=== PATIENT | male | born 1955 | race Two or more races ===

== ENCOUNTER 2018-11-20 07:06 | Inpatient (IN) | payer MEDICARE, MEDICAID ==
[~2018-11-20] VITALS: Ht 167.6 cm; Wt 57.2 kg
[2018-11-20 10:15] VITALS: BP 119/72
--- NOTE | 2018-11-20 10:30 | NUR ---
NURSE NOTES: Patient transferred from [facility], and received report from [place] nurse Jelly/RN and Bonilla/ EMT. Patient alert, IV on right antecubital, patent, no bleeding or infiltration. Fistula on right lower arm thrilling. Heart monitor placed. No acute distress/SOB noted. Vitals are stable. at bed side. Bed in low position and locked, Call light within reach.
[2018-11-20 12:00] VITALS: BP 109/71
[2018-11-20] MEDS ORDERED: Zolpidem 5mg tab ORAL PRN (12:15)
[2018-11-20] MEDS ORDERED: Morphine Sulfate 2mg/ml Inj(IV/IM USE ONLY) IVP PRN ×2 (12:15→13:00)
[2018-11-20] MEDS ORDERED: LORazepam Inj 2mg/ml 1ml IV PRN (12:15)
[2018-11-20] MEDS ORDERED: Miralax 17gm pkt ORAL PRN (12:15)
[2018-11-20] MEDS: Midodrine 10mg tab ORAL SCH ×2 (13:43→17:05)
[2018-11-20] MEDS ORDERED: Acyclovir 1,000 MG in D5W 275 ML IV SCH (14:00)
[2018-11-20] MEDS ORDERED: valACYclovir HCL 500mg tab ORAL SCH (14:00)
--- NOTE | 2018-11-20 14:47 | Consultation ---
Consult Note Consult Note asked to eval for dialysis management Assessment/Plan # [id number] Randy Jeter MD Nov 20, 2018 14:47
[2018-11-20 15:42] LABS: BASOPHILS % (AUTO) 0.8 % (0.0-2.0); EOSINOPHILS % (AUTO) 0.1 % (0.0-3.0); HEMATOCRIT 31.2 % (42.0-52.0); HEMOGLOBIN 10.3 G/DL (14.2-18.0); LYMPHOCYTES % (AUTO) 12.5 % (20.0-45.0); MEAN CORPUSCULAR VOLUME 96 FL (80-99); MONOCYTES % (AUTO) 5.9 % (1.0-10.0); NEUTROPHILS % (AUTO) 80.7 % (45.0-75.0); PLATELET COUNT 210 K/UL (150-450); RED BLOOD COUNT 3.25 M/UL (4.70-6.10); RED CELL DISTRIBUTION WIDTH 15.2 % (11.6-14.8); WHITE BLOOD COUNT 10.8 K/UL (4.8-10.8)
[2018-11-20 15:46] LABS: ANION GAP 19 mmol/L (5-15); BLOOD UREA NITROGEN 90 mg/dL (7-18); CALCIUM 8.3 MG/DL (8.5-10.1); CARBON DIOXIDE 20 MMOL/L (21-32); CHLORIDE 92 MMOL/L (98-107); CREATININE 6.1 MG/DL (0.55-1.30); POTASSIUM 3.7 MMOL/L (3.5-5.1); SODIUM 131 MMOL/L (136-145)
[2018-11-20 15:49] LABS: PHOSPHORUS 5.7 MG/DL (2.5-4.9)
[2018-11-20 16:00] VITALS: BP 114/68
[2018-11-20] MEDS: Sucralfate 1gm tab ORAL SCH (17:05)
[2018-11-20] MEDS: Docusate 100mg cap ORAL SCH (17:06)
--- NOTE | 2018-11-20 18:07 | History & Physical ---
History and Physical History & Physicial Dictated for Int Med-Dr Bond no. [id number]. Osei Hernandez MD Nov 20, 2018 18:07
--- NOTE | 2018-11-20 19:10 | NUR ---
HAND-OFF: Report given to Vianca/RN, Patient is awake and alert, Family at bedside. No acute distress/SOB noted. Endorsed plan of care.
--- NOTE | 2018-11-20 19:10 | NUR ---
NURSE NOTES: OBTAINED REPORT FROM KELLIE AUGUSTE. PT RESTING IN BED FREE FROM APPARENT DISTRESS.
--- NOTE | 2018-11-20 19:45 | Consultation ---
DATE OF CONSULTATION: 11/20/2018 RENAL CONSULTATION CONSULTING PHYSICIAN: Randy Jeter M.D. HISTORY OF PRESENT ILLNESS: I was asked to evaluate the patient for dialysis management. The patient is a 63-year-old male, who was transferred here from [facility]. The patient is a poor historian. All the information was gotten through a physician asst. Apparently, he is having a long history of diabetes and high blood pressure and as a result of that, he developed kidney failure and he was started on dialysis 2 years ago. He is being dialyzed through the left forearm fistula. The patient seen his primary physician and was diagnosed to have shingles. The rash is over the right upper back and was given Valtrex. The patient apparently developed a reaction and started hallucinating and as a result of that, was taken to emergency room. He was later transferred here to [facility]. Current medications that the patient has in the box that was taking include acyclovir, iron, ibuprofen, midodrine, Protonix, prednisone, and Carafate. PHYSICAL EXAMINATION: GENERAL: Right now, the patient is not in any distress. VITAL SIGNS: Temperature 97.4, pulse rate 90, respiratory rate 20, and blood pressure 109/71. The patient have a fistula over the right arm. HEART: Appears to be irregular with rare irregular beats. LUNGS: Clear. ABDOMEN: Soft. EXTREMITIES: Lower extremities, trace to 1+ edema. Evidence of right hip surgery present and there are left over skin rashes over the right upper back of recent shingles infection. IMPRESSION: 1. ESRD. 2. Encephalopathy. 3. History of recent shingles. 4. History of diabetes mellitus. 5. History of hypertension. 6. History of right hip fracture. SURGERY PLAN: Check the labs, hemodialysis tomorrow, if needed earlier based on the serum potassium. We will be doing it earlier and also continue the rest of the medication, which include blood pressure and blood sugar check per the PMD according to how the patient's condition evolves, we make the proper changes in our future management. Randy Jeter M.D. DR: BIRD JOB#: [id number] CC:
[2018-11-20 20:00] VITALS: BP 113/75
--- NOTE | 2018-11-20 21:00 | History and Physical Report ---
DATE OF ADMISSION: 11/20/2018 CHIEF COMPLAINT: The patient is a 63-year-old male, who presents with chief complaint of right-sided chest pain. HISTORY OF PRESENT ILLNESS: The patient was diagnosed with shingles approximately one week ago. The patient has completed a course of Valtrex and prednisone. The patient states the rash had disappeared. The patient presented to [facility] Emergency Room complaining of dizziness. The patient states dizziness began approximately 5 hours prior to admission. The patient also was complaining of right-sided chest pain. The patient was transferred to [facility] for insurance purposes. The patient is admitted for right-sided chest pain and dizziness. REVIEW OF SYSTEMS: CONSTITUTIONAL: The patient denies weight loss or weight gain. The patient denies fevers or chills. HEENT: The patient denies ear or throat pain. The patient denies headache. CARDIOVASCULAR: The patient denies palpitations or chest pain. CHEST: The patient complains of cough productive of yellowish sputum. The patient denies wheezes. ABDOMEN: The patient denies nausea, vomiting, diarrhea, or constipation. GENITOURINARY: The patient denies dysuria or increased frequency of urination. NEUROMUSCULAR: The patient denies seizures or generalized weakness. PAST MEDICAL HISTORY: Significant for: 1. Diabetes type 2. 2. Hypertension. 3. End-stage renal disease, on hemodialysis every Thursday, , and Thursday. 4. Congestive heart failure. 5. Cirrhosis of liver. PAST SURGICAL HISTORY: The patient denies. CURRENT MEDICATIONS: 1. Valtrex 1 g p.o. 3 times daily. 2. Prednisone 5 mg p.o. 3 times daily. 3. Carafate 1 tablet p.o. daily before meals. 4. Protonix 40 mg p.o. daily. 5. Midodrine 10 mg one tablet p.o. 3 times daily. 6. Iron sulfate 325 mg p.o. twice daily. 7. Ibuprofen 600 mg p.o. q.6 hours p.r.n. ALLERGIES: No known drug allergies. SOCIAL HISTORY: The patient is . The patient's is at the bedside. The patient denies tobacco use, having quit several years previously. The patient denies alcohol use. PHYSICAL EXAMINATION: VITAL SIGNS: Temperature 97.1, respirations 18, pulse 92, blood pressure 142/82. GENERAL: Well-developed, well-nourished male, in no apparent distress. HEENT: Eyes, pupils equal and responsive to light and accommodation. Extraocular movements are intact. NECK: Supple without lymphadenopathy. CHEST: Lungs are clear to auscultation bilaterally without wheezes or rales. CARDIOVASCULAR: Regular rhythm and rate. S1 and S2 are normal without murmurs, rubs, or gallops. ABDOMEN: Soft, nontender, and nondistended. Positive bowel sounds. No evidence of hepatosplenomegaly. Currently, no rebound or guarding noted. EXTREMITIES: Negative for clubbing, cyanosis, or edema. RECTAL: Refused. GENITAL: Refused. NEUROLOGIC: Cranial nerves II through XII are grossly intact without focal deficits. Motor strength is 5/5 bilaterally intact. Deep tendon reflexes are 2+, plantar. LABORATORY AND DIAGNOSTIC DATA: WBC 7.1, hemoglobin 11.2, hematocrit 33.1, platelets 225,000. Sodium 133, potassium 3.9, chloride 94, CO2 21, BUN 80, creatinine 5.66, glucose 290. CT of the head without contrast was reported as no acute disease. ASSESSMENT: This is a 63-year-old male with: 1. Vertigo. 2. Right chest pain. 3. Herpes zoster. 4. End-stage renal disease. 5. Diabetes type 2. 6. Hypertension. 7. History of congestive heart failure. 8. Cirrhosis of liver. TREATMENT: 1. Vertigo. This may be a multifactorial. The patient missed dialysis today. Vertigo may be secondary to missed dialysis versus acute cerebrovascular accident versus acute myocardial infarction. Serial troponin levels will be performed. MRI of the brain is pending. Carotid duplex Dopplers are pending. 2. Right chest pain. This is probably secondary to herpes zoster. 3. Herpes zoster. The patient has completed a course of Valtrex and prednisone. 4. End-stage renal disease. A Nephrology consultation has been obtained with Dr. Jeter. 5. Diabetes type 2. Regular insulin sliding scale has been instituted. 6. Hypertension. Continue midodrine as above. 7. Congestive heart failure. 8. Cirrhosis of the liver. Osei Hernandez M.D. DR: Fco JOB#: [id number] CC:
[2018-11-21] VITALS (9 sets, daily range): BP systolic 92–114; BP diastolic 42–74
[2018-11-21] MEDS: Sucralfate 1gm tab ORAL SCH ×3 (06:04→16:26)
--- NOTE | 2018-11-21 07:00 | NUR ---
NURSE NOTES: Received report from Vianca/RN, Patient is asleep, no acute distress/SOB noted at this time. Family member at bedside. IV on right antecubital 20 gauge. patent, no bleeding or infiltration noted. Bed in low position and locked, Call light within reach. Will continue plan of care.
--- NOTE | 2018-11-21 07:08 | NUR ---
HAND-OFF: REPORT GIVEN TO KELLIE AUGUSTE. PT RESTING IN BED FREE FROM APPARENT DISTRESS. FALL RISK PRECAUTIONS IN PLACE AND CALL LIGHT WITHIN REACH AT ALL TIMES.
[2018-11-21 07:31] LABS: BASOPHILS % (AUTO) 0.3 % (0.0-2.0); HEMATOCRIT 33.9 % (42.0-52.0); LYMPHOCYTES % (AUTO) 11.7 % (20.0-45.0); MEAN CORPUSCULAR VOLUME 98 FL (80-99); PLATELET COUNT 226 K/UL (150-450); RED BLOOD COUNT 3.48 M/UL (4.70-6.10); RED CELL DISTRIBUTION WIDTH 15.9 % (11.6-14.8); WHITE BLOOD COUNT 10.1 K/UL (4.8-10.8)
[2018-11-21 07:38] LABS: CREATINE KINASE 33 U/L (26-308); GAMMA GLUTAMYL TRANSPEPTIDASE 1040 U/L (5-85); PHOSPHORUS 6.7 MG/DL (2.5-4.9)
[2018-11-21 07:54] LABS: ALANINE AMINOTRANSFERASE 46 U/L (12-78); ALBUMIN 2.4 G/DL (3.4-5.0); ALBUMIN/GLOBULIN RATIO 0.5 (1.0-2.7); ALKALINE PHOSPHATASE 691 U/L (46-116); ANION GAP 22 mmol/L (5-15); ASPARTATE AMINO TRANSFERASE 67 U/L (15-37); BILIRUBIN,TOTAL 5.4 MG/DL (0.2-1.0); BLOOD UREA NITROGEN 94 mg/dL (7-18); CALCIUM 8.6 MG/DL (8.5-10.1); CARBON DIOXIDE 19 MMOL/L (21-32); CHLORIDE 92 MMOL/L (98-107); CHOLESTEROL 392 MG/DL (< 200); CREATININE 6.8 MG/DL (0.55-1.30); FERRITIN 733 NG/ML (8-388); HDL CHOLESTEROL 16 MG/DL (40-60); POTASSIUM 4.2 MMOL/L (3.5-5.1); SODIUM 133 MMOL/L (136-145); TRIGLYCERIDES 211 MG/DL (30-150)
[2018-11-21 07:59] LABS: BILIRUBIN,DIRECT 4.8 MG/DL (0.0-0.3)
[2018-11-21 08:18] LABS: % IRON SATURATION 18 % (15-50); IRON 39 ug/dL (50-175); TOTAL IRON BINDING CAPACITY 212 ug/dL (250-450)
[2018-11-21] MEDS: Midodrine 10mg tab ORAL SCH ×3 (08:41→18:00)
[2018-11-21] MEDS: Docusate 100mg cap ORAL SCH ×2 (08:41→18:00)
--- NOTE | 2018-11-21 08:54 | Physician Query ---
Clarification is required for compliance, coding accuracy, and to reflect severity of illness for this patient Dear Dr. 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 Congestion heart failure documented in history and physical /renal c consultant note. Please Clarify: Acuity [X] Acute [] Chronic [] Acute on Chronic Type [X] Systolic [] Diastolic [] Systolic & Diastolic (Combined) [] Other: Present on Admission: [X] Yes [] No [] Clinically Undetermined Physician signature Date Please also document in your Progress Notes and/or Discharge Summary and indicate if the condition was present on admission. JACKELYND
--- NOTE | 2018-11-21 13:57 | Nephrology Progress Note ---
Assessment/Plan Problem List: (1) ESRD (end stage renal disease) (2) Diabetic nephropathy (3) Shingles (4) Hypotension (5) Liver cirrhosis Assessment 1. Vertigo. 2. Right chest pain. 3. Herpes zoster. 4. End-stage renal disease. 5. Diabetes type 2. 6. Hypertension. 7. History of congestive heart failure. 8. Cirrhosis of liver. Plan currently receiving HD - tolerating well. continue per current management GI eval Midodrine Phos binders check ammonia per orders Subjective ROS Limited/Unobtainable: No Constitutional: Reports: malaise Objective Objective Last 24 Hour Vital Signs Date Time Temp Pulse Resp B/P (MAP) Pulse Ox O2 Delivery O2 Flow Rate FiO2 11/21/18 12:00 98.6 89 18 106/63 (77) 98 11/21/18 09:00 Room Air 11/21/18 08:00 99.5 93 18 102/65 (77) 99 11/21/18 04:00 98.0 79 20 110/60 (77) 97 11/21/18 04:00 83 11/21/18 00:00 98.3 82 20 109/58 (75) 98 11/21/18 00:00 89 11/20/18 21:00 Room Air 11/20/18 20:00 91 11/20/18 20:00 97.7 91 18 113/75 (88) 97 11/20/18 16:00 97.5 92 20 114/68 (83) 100 11/20/18 16:00 89 Intake and Output 11/20/18 11/21/18 19:00 07:00 Intake Total 360 ml Output Total 0 ml Balance 360 ml 0 ml Intake Oral 360 ml Output Urine Total 0 ml Stool Total 0 ml # Voids 1 # Bowel Movements 3 Laboratory Tests 11/20/18 15:10: White Blood Count 10.8, Red Blood Count 3.25L, Hemoglobin 10.3L, Hematocrit 31.2L, Mean Corpuscular Volume 96, Mean Corpuscular Hemoglobin 31.7H, Mean Corpuscular Hemoglobin Concent 33.1, Red Cell Distribution Width 15.2H, Platelet Count 210, Mean Platelet Volume 9.1, Neutrophils (%) (Auto) 80.7H, Lymphocytes (%) (Auto) 12.5L, Monocytes (%) (Auto) 5.9, Eosinophils (%) (Auto) 0.1, Basophils (%) (Auto) 0.8, Sodium Level 131L, Potassium Level 3.7, Chloride Level 92L, Carbon Dioxide Level 20L, Anion Gap 19H, Blood Urea Nitrogen 90H, Creatinine 6.1H, Estimat Glomerular Filtration Rate 9.4, Glucose Level 255H, Calcium Level 8.3L, Phosphorus Level 5.7H 11/21/18 04:50: White Blood Count 10.1, Red Blood Count 3.48L, Hemoglobin 11.0L, Hematocrit 33.9L, Mean Corpuscular Volume 98, Mean Corpuscular Hemoglobin 31.6H, Mean Corpuscular Hemoglobin Concent 32.4, Red Cell Distribution Width 15.9H, Platelet Count 226, Mean Platelet Volume 10.3H, Neutrophils (%) (Auto) 81.0H, Lymphocytes (%) (Auto) 11.7L, Monocytes (%) (Auto) 7.0, Eosinophils (%) (Auto) 0.0, Basophils (%) (Auto) 0.3, Sodium Level 133L, Potassium Level 4.2, Chloride Level 92L, Carbon Dioxide Level 19L, Anion Gap 22H, Blood Urea Nitrogen 94H, Creatinine 6.8H, Estimat Glomerular Filtration Rate 8.3, Glucose Level 108#H, Calcium Level 8.6, Phosphorus Level 6.7H, Hemoglobin A1c 5.1, Uric Acid 7.2, Magnesium Level 2.1, Iron Level 39L, Total Iron Binding Capacity 212L, Percent Iron Saturation 18, Unsaturated Iron Binding 173, Ferritin 733H, Total Bilirubin 5.4H, Direct Bilirubin 4.8H, Gamma Glutamyl Transpeptidase 1040H, Aspartate Amino Transf (AST/SGOT) 67H, Alanine Aminotransferase (ALT/SGPT) 46, Alkaline Phosphatase 691H, Total Creatine Kinase 33, Troponin I 0.234H, C- Reactive Protein, Quantitative 6.2H, Pro-B-Type Natriuretic Peptide 29943F, Total Protein 7.2, Albumin 2.4L, Globulin 4.8, Albumin/Globulin Ratio 0.5L, Triglycerides Level 211H, Cholesterol Level 392H, LDL Cholesterol 344H, HDL Cholesterol 16L, Cholesterol/HDL Ratio 24.5H, Vitamin B12 Level > 2000H, Folate 18.9, Thyroid Stimulating Hormone (TSH) 3.659 11/21/18 11:40: Hepatitis B Surface Antigen [Pending] Height (Feet): 5 Height (Inches): 6.00 Weight (Pounds): 134 General Appearance: no apparent distress Randy Jeter MD Nov 21, 2018 13:57
[2018-11-21] MEDS ORDERED: Aspirin Baby 81mg ORAL SCH (14:00)
[2018-11-21] MEDS ORDERED: Nitroglycerin Patch 0.4mg TDERMAL SCH (14:00)
--- NOTE | 2018-11-21 15:38 | Internal Med Progress Note ---
Subjective Date of Service: Nov 21, 2018 Physician Name Osei Hernandez Attending Physician Kelvin Bond MD Current Medications Medications (Trade) Dose Ordered Sig/Karthik Route PRN Reason Start Time Stop Time Status Last Admin Dose Admin Acetaminophen (Tylenol) 650 mg Q4H PRN ORAL fever 11/20/18 12:15 12/20/18 12:14 Acyclovir 300 mg/ Dextrose 275 ml @ 275 mls/hr Q24H IV 11/21/18 18:00 12/21/18 17:59 Aspirin (ASA) 81 mg DAILY ORAL 11/21/18 14:00 12/21/18 13:59 11/21/18 14:33 Dextrose (Dextrose 50%) 25 ml Q30M PRN IV Hypoglycemia 11/20/18 12:15 12/20/18 12:14 Dextrose (Dextrose 50%) 50 ml Q30M PRN IV Hypoglycemia 11/20/18 12:30 12/20/18 12:29 Docusate Sodium (Colace) 100 mg TWICE A DAY ORAL 11/20/18 18:00 12/20/18 17:59 11/21/18 08:41 Lorazepam (Ativan 2mg/ml 1ml) 0.5 mg Q4H PRN IV For Anxiety 11/20/18 12:15 11/27/18 12:14 Midodrine (Pro-Amatine) 10 mg THREE TIMES A DAY ORAL 11/20/18 13:00 12/20/18 12:59 11/21/18 11:47 Morphine Sulfate (Morphine Sulfate) 1 mg Q4H PRN IVP For Pain 11/20/18 13:00 11/27/18 12:59 Nitroglycerin (Ntg) 1 patch Q24H TDERMAL 11/21/18 14:00 12/21/18 13:59 11/21/18 14:34 Ondansetron HCl (Zofran) 4 mg Q6H PRN IVP Nausea & Vomiting 11/20/18 12:15 12/20/18 12:14 Pantoprazole (Protonix) 40 mg EVERY 12 HOURS ORAL 11/20/18 21:00 12/20/18 20:59 11/21/18 08:41 Polyethylene Glycol (Miralax) 17 gm HSPRN PRN ORAL Constipation 11/20/18 12:15 12/20/18 12:14 Sevelamer Carbonate (Renvela) 1,600 mg THREE TIMES A DAY ORAL 11/21/18 15:00 12/21/18 14:59 Sucralfate (Carafate) 1 gm BEFORE MEALS ORAL 11/20/18 16:30 12/20/18 16:29 11/21/18 11:47 Zolpidem Tartrate (Ambien) 5 mg HSPRN PRN ORAL Insomnia 11/20/18 12:15 11/27/18 12:14 11/20/18 20:35 Allergies: Coded Allergies: No Known Allergies (Unverified , 11/20/18) ROS Limited/Unobtainable: No Constitutional: Reports: no symptoms HEENT: Reports: no symptoms Cardiovascular: Reports: chest pain Respiratory: Reports: no symptoms Gastrointestinal/Abdominal: Reports: no symptoms Genitourinary: Reports: no symptoms Neurologic/Psychiatric: Reports: no symptoms Subjective 63 YO M admitted with vertigo. Now nelson heart failure. Cover for Int Maximus-Dr Bond Objective Last Vital Signs Date Time Temp Pulse Resp B/P (MAP) Pulse Ox O2 Delivery O2 Flow Rate FiO2 11/21/18 14:34 106/63 11/21/18 12:00 98.6 89 18 98 11/21/18 09:00 Room Air Laboratory Tests Test 11/21/18 04:50 11/21/18 11:40 White Blood Count 10.1 K/UL (4.8-10.8) Red Blood Count 3.48 M/UL (4.70-6.10) L Hemoglobin 11.0 G/DL (14.2-18.0) L Hematocrit 33.9 % (42.0-52.0) L Mean Corpuscular Volume 98 FL (80-99) Mean Corpuscular Hemoglobin 31.6 PG (27.0-31.0) H Mean Corpuscular Hemoglobin Concent 32.4 G/DL (32.0-36.0) Red Cell Distribution Width 15.9 % (11.6-14.8) H Platelet Count 226 K/UL (150-450) Mean Platelet Volume 10.3 FL (6.5-10.1) H Neutrophils (%) (Auto) 81.0 % (45.0-75.0) H Lymphocytes (%) (Auto) 11.7 % (20.0-45.0) L Monocytes (%) (Auto) 7.0 % (1.0-10.0) Eosinophils (%) (Auto) 0.0 % (0.0-3.0) Basophils (%) (Auto) 0.3 % (0.0-2.0) Sodium Level 133 MMOL/L (136-145) L Potassium Level 4.2 MMOL/L (3.5-5.1) Chloride Level 92 MMOL/L (98-107) L Carbon Dioxide Level 19 MMOL/L (21-32) L Anion Gap 22 mmol/L (5-15) H Blood Urea Nitrogen 94 mg/dL (7-18) H Creatinine 6.8 MG/DL (0.55-1.30) H Estimat Glomerular Filtration Rate 8.3 mL/min (>60) Glucose Level 108 MG/DL (74-106) #H Hemoglobin A1c 5.1 % (4.3-6.0) Uric Acid 7.2 MG/DL (2.6-7.2) Calcium Level 8.6 MG/DL (8.5-10.1) Phosphorus Level 6.7 MG/DL (2.5-4.9) H Magnesium Level 2.1 MG/DL (1.8-2.4) Iron Level 39 ug/dL (50-175) L Total Iron Binding Capacity 212 ug/dL (250-450) L Percent Iron Saturation 18 % (15-50) Unsaturated Iron Binding 173 ug/dL (112-346) Ferritin 733 NG/ML (8-388) H Total Bilirubin 5.4 MG/DL (0.2-1.0) H Direct Bilirubin 4.8 MG/DL (0.0-0.3) H Gamma Glutamyl Transpeptidase 1040 U/L (5-85) H Aspartate Amino Transf (AST/SGOT) 67 U/L (15-37) H Alanine Aminotransferase (ALT/SGPT) 46 U/L (12-78) Alkaline Phosphatase 691 U/L (46-116) H Total Creatine Kinase 33 U/L (26-308) Troponin I 0.234 ng/mL (0.000-0.056) C-Reactive Protein, Quantitative 6.2 mg/dL (0.00-0.90) H Pro-B-Type Natriuretic Peptide 94271 pg/mL (0-125) H Total Protein 7.2 G/DL (6.4-8.2) Albumin 2.4 G/DL (3.4-5.0) L Globulin 4.8 g/dL Albumin/Globulin Ratio 0.5 (1.0-2.7) L Triglycerides Level 211 MG/DL (30-150) H Cholesterol Level 392 MG/DL (< 200) H LDL Cholesterol 344 mg/dL (<100) H HDL Cholesterol 16 MG/DL (40-60) L Cholesterol/HDL Ratio 24.5 (3.3-4.4) H Vitamin B12 Level > 2000 PG/ML (193-986) H Folate 18.9 NG/ML (8.6-58.9) Thyroid Stimulating Hormone (TSH) 3.659 uiU/mL (0.358-3.740) Hepatitis B Surface Antigen Pending Intake and Output 11/20/18 11/21/18 19:00 07:00 Intake Total 360 ml Output Total 0 ml Balance 360 ml 0 ml Intake Oral 360 ml Output Urine Total 0 ml Stool Total 0 ml # Voids 1 # Bowel Movements 3 Objective PHYSICAL EXAMINATION: GENERAL: Well-developed, well-nourished male, in no apparent distress. HEENT: Eyes, pupils equal and responsive to light and accommodation. Extraocular movements are intact. NECK: Supple without lymphadenopathy. CHEST: Lungs are clear to auscultation bilaterally without wheezes or rales. CARDIOVASCULAR: Regular rhythm and rate. S1 and S2 are normal without murmurs, rubs, or gallops. ABDOMEN: Soft, nontender, and nondistended. Positive bowel sounds. No evidence of hepatosplenomegaly. Currently, no rebound or guarding noted. EXTREMITIES: Negative for clubbing, cyanosis, or edema. RECTAL: Refused. GENITAL: Refused. NEUROLOGIC: Cranial nerves II through XII are grossly intact without focal deficits. Motor strength is 5/5 bilaterally intact. Deep tendon reflexes are 2+, plantar. Assessment/Plan Assessment/Plan ASSESSMENT: This is a 63-year-old male with: 1. Vertigo. 2. Right chest pain. 3. Herpes zoster. 4. End-stage renal disease. 5. Diabetes type 2. 6. Hypertension. 7. Acute congestive heart failure. 8. Cirrhosis of liver. TREATMENT: 1. Vertigo. This may be a multifactorial. The patient missed dialysis today. Vertigo may be secondary to missed dialysis versus acute cerebrovascular accident versus acute myocardial infarction. Serial troponin levels will be performed. MRI of the brain is pending. Carotid duplex Dopplers are pending. 2. Right chest pain. This is probably secondary to herpes zoster. 3. Herpes zoster. The patient has completed a course of Valtrex and prednisone. 4. End-stage renal disease. A Nephrology consultation has been obtained with Dr. Jeter. 5. Diabetes type 2. Regular insulin sliding scale has been instituted. 6. Hypertension. Continue midodrine as above. 7. Congestive heart failure-BNP=34,000 ?volume overload? 8. Cirrhosis of the liver. Osei Hernandez MD Nov 21, 2018 15:38
[2018-11-21] MEDS ORDERED: Promethazine/Codeine 5ml UD ORAL PRN (16:00)
[2018-11-21] MEDS: Renvela 800mg Pkt ORAL SCH ×2 (16:26→18:00)
[2018-11-21] MEDS ORDERED: D5W IV SCH (18:00)
[2018-11-21] MEDS ORDERED: ACYCLOVIR IV SCH (18:00)
--- NOTE | 2018-11-21 19:30 | NUR ---
NURSE NOTES: Report received from Estelita Garcia RN. Pt is resting in bed. Pt is lethargic, only able to arouse with painful stimuli. Pt is able to state name only when asking multiple times. Pt is tachypnic to 24 respirations/minute. Per day shift RN and family report, pt is normally more alert and oriented but at baseline does have some confusion. Pt is on room air with O2 sat to 93%, will place on supplemental O2. RT contacted for nasal cannula and flow meter. IV site is R FA #20g and is asymptomatic, patent, and intact. L FA AV fistula noted for dialysis access. BP: 103/65. Fall precautions in place. Bed is in lowest position with brake engaged, side rails up x3, and bed alarm on. Call light and side table placed within reach. Closed scab noted on R hip and healing scars noted on upper back r/t hx of shingles. Will notify MD of change in level of consciousness and continue to monitor.
--- NOTE | 2018-11-21 19:35 | NUR ---
NURSE NOTES: Report given to Moriah/RN, Family at bedside. Endorsed plan of care
--- NOTE | 2018-11-21 19:45 | NUR ---
NURSE NOTES: Message left for MD Hernandez to notify regarding pt change in level of consciousness. Awaiting call back for further instructions.
--- NOTE | 2018-11-21 20:03 | NUR ---
NURSE NOTES: Message left for MD Jeter to notify of change in level of consciousness. Awaiting call back for further instructions.
--- NOTE | 2018-11-21 20:05 | NUR ---
NURSE NOTES: Left message for MD Rosales to notify of change in patient's level of consciousness. Awaiting call back for further instructions. Will continue to monitor.
--- NOTE | 2018-11-21 20:08 | NUR ---
NURSE NOTES: MD Jeter return call and provided orders for STAT ammonia level and STAT ABG. Orders noted and carried out. RT Kiersten notified of STAT test and at bedside to carry out. Call to lab to request for someone to come and draw STAT labs as well.
--- NOTE | 2018-11-21 20:30 | NUR ---
NURSE NOTES: MD Hernandez return call and updated on patient's change in condition and MD Jeter's orders. Per MD Hernandez, also order a STAT CBC, BMP, and CXR. Orders noted and carried out. Lab notified of additional STAT labs.
--- NOTE | 2018-11-21 20:34 | NUR ---
NURSE NOTES: MD Rosales notified of ABG results. Pt severely hypoxic with PaO2 of 48.6 per ABG results. Pt placed on 2L O2 via nasal cannula and O2 sat noted to be 96%. Per MD Rosales, titrate FiO2 > 92% and transfer patient to ICU. CN and laborer beam house aware. Awaiting bed assignment in ICU prior to transferring. Family at bedside and aware of patient transfer.
[2018-11-21 21:03] LABS: BASOPHILS % (AUTO) 0.3 % (0.0-2.0); HEMOGLOBIN 10.4 G/DL (14.2-18.0); LYMPHOCYTES % (AUTO) 10.6 % (20.0-45.0); MEAN CORPUSCULAR VOLUME 94 FL (80-99); MONOCYTES % (AUTO) 5.1 % (1.0-10.0); NEUTROPHILS % (AUTO) 83.9 % (45.0-75.0); PLATELET COUNT 233 K/UL (150-450); RED CELL DISTRIBUTION WIDTH 15.2 % (11.6-14.8); WHITE BLOOD COUNT 13.5 K/UL (4.8-10.8)
[2018-11-21 21:15] LABS: ANION GAP 17 mmol/L (5-15); BLOOD UREA NITROGEN 78 mg/dL (7-18); CALCIUM 8.3 MG/DL (8.5-10.1); CARBON DIOXIDE 22 MMOL/L (21-32); CHLORIDE 94 MMOL/L (98-107); CREATININE 5.9 MG/DL (0.55-1.30); POTASSIUM 3.9 MMOL/L (3.5-5.1); SODIUM 133 MMOL/L (136-145)
--- NOTE | 2018-11-21 21:15 | NUR ---
NURSE NOTES: Pt transferred from 207-1 to 246-C in ICU per MD Rosales. Pt transferred via nile bed without incidence. Pt is still lethargic upon transfer, arousable to painful stimuli. Pt IV site is R FA #20g and is asymptomatic, patent, and intact. Family took backpack and cell phone home so the only belongings remaining with patient is a silver ring. Belongings list checked and signed with receiving MOLINA Wren at bedside. Report given to Siena AUGUSTE. Endorsed plan of care, including STAT CXR still pending. MD Bond informed of transfer.
--- NOTE | 2018-11-21 21:15 | NUR ---
NURSE NOTES: received report from darlene from [facility],transferred due to severe hypoxia, po2 of 48.6 from abg's, placed on o2 4lnc and now with o2 sat 95-96%, remains very lethargiic, open eyes on painful stimuli, no verbal response, initial bp 102/42, cardiac cath lab radiology technologist shows nsr with hr 95/min, rr 22/min, noted dry scratch like rashes to right clavicular area and dry scab to right hip, scds on, av shunt to right forearm, with good bruit and thrill
--- NOTE | 2018-11-21 23:00 | NUR ---
NURSE NOTES: dr fernandez called for ammonia level of 55, no new orders
[2018-11-22] VITALS (36 sets, daily range): BP systolic 42–139; BP diastolic 19–74
[2018-11-22] MEDS ORDERED: Promethazine/Codeine 5ml UD ORAL PRN
--- NOTE | 2018-11-22 | NUR ---
NURSE NOTES: in no distress, o2 sat now 97-98% on o2 4lnc, bp 101/49, remains very lethargic,no verbal response, opens eyes on painful stimuli
[2018-11-22] MEDS ORDERED: LORazepam Inj 2mg/ml 1ml IV PRN (00:15)
[2018-11-22] MEDS ORDERED: Morphine Sulfate 2mg/ml Inj(IV/IM USE ONLY) IVP PRN (01:00)
--- NOTE | 2018-11-22 02:00 | NUR ---
NURSE NOTES: maintaing o2 sat 94-97%, repositioned q2hr, remains anuric, skin care done
--- NOTE | 2018-11-22 04:00 | NUR ---
NURSE NOTES: more awake, withdraws to pain,in no resp distress
--- NOTE | 2018-11-22 06:00 | NUR ---
NURSE NOTES: am care done, more arousable, o2 sat 95-98%, night monitor shows nsr
[2018-11-22] MEDS: Sucralfate 1gm tab ORAL SCH ×3 (06:20→18:16)
[2018-11-22 06:39] LABS: MEAN CORPUSCULAR VOLUME 98 FL (80-99); PLATELET COUNT 236 K/UL (150-450); RED BLOOD COUNT 3.45 M/UL (4.70-6.10); RED CELL DISTRIBUTION WIDTH 15.8 % (11.6-14.8); WHITE BLOOD COUNT 14.9 K/UL (4.8-10.8)
[2018-11-22 06:55] LABS: ANION GAP 19 mmol/L (5-15); BLOOD UREA NITROGEN 81 mg/dL (7-18); CALCIUM 8.4 MG/DL (8.5-10.1); CARBON DIOXIDE 22 MMOL/L (21-32); CHLORIDE 92 MMOL/L (98-107); CREATININE 6.4 MG/DL (0.55-1.30); SODIUM 133 MMOL/L (136-145)
[2018-11-22 06:57] LABS: PHOSPHORUS 8.4 MG/DL (2.5-4.9)
--- NOTE | 2018-11-22 07:00 | NUR ---
HAND-OFF: Report given to eddy lugo rn.
[2018-11-22 07:02] LABS: AMMONIA 27 umol/L (11-32)
[2018-11-22 07:06] LABS: ALANINE AMINOTRANSFERASE 40 U/L (12-78); ALBUMIN 2.4 G/DL (3.4-5.0); ALBUMIN/GLOBULIN RATIO 0.5 (1.0-2.7); ALKALINE PHOSPHATASE 587 U/L (46-116); ASPARTATE AMINO TRANSFERASE 49 U/L (15-37); BILIRUBIN,TOTAL 5.2 MG/DL (0.2-1.0)
[2018-11-22 07:09] LABS: BILIRUBIN,DIRECT 4.3 MG/DL (0.0-0.3)
--- NOTE | 2018-11-22 07:23 | NUR ---
NURSE NOTES: Report received from [place] AUGUSTE. Admitted to ICU for severe ICU. Patient alter and afebrile at this time,SR on the monitor and on nasal cannula at 4LPM saturating at 98% at this time. Last dialysis on 11/21 and take 2L out. AVS LFA with bruit and thrill. RH 18 G saline lock patent with no s/s infiltration.Turned and repositioned.Mouth care done, HOB elevated to prevent aspiration.Call light within easy reach, will continue to monitor.
[2018-11-22] MEDS: Midodrine 10mg tab ORAL SCH ×3 (08:09→18:01)
[2018-11-22] MEDS: Renvela 800mg Pkt ORAL SCH ×3 (08:10→18:06)
[2018-11-22] MEDS ORDERED: Docusate 100mg cap ORAL SCH ×2 (09:00→13:00)
[2018-11-22] MEDS ORDERED: Aspirin Baby 81mg ORAL SCH (09:00)
--- NOTE | 2018-11-22 09:33 | NUR ---
NURSE NOTES: Seen by Dr Rosales will follow up with new order
--- NOTE | 2018-11-22 09:37 | Pulmonolgy Critical Care Note ---
Critical Care - Asmt/Plan Problems: (1) Acute metabolic encephalopathy (2) Hypotension (3) ESRD (end stage renal disease) (4) Liver cirrhosis (5) Severe protein-calorie malnutrition (6) Diabetes mellitus Respiratory: monitor respiratory rate, adjust FIO2, CXR Cardiac: start pressors, continue to monitor HR/BP Renal: F/U I&O, keep IV fluid, check electrolytes Infectious Disease: check cultures Gastrointestinal: hold feedings Endocrine: monitor blood sugar, continue sliding scale insulin Hematologic: monitor H/H, transfuse if hgb<8.5 Neurologic: PRN Ativan, PRN Morphine, keep patient comfortable Affect: PRN ativan Prophylaxis: Heparin Notes Reviewed: cardio, renal Discussed with: nurses, 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, 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8 84 18 101/49 (66) 97 11/21/18 23:19 97 Nasal Cannula 4.0 36 11/21/18 23:00 85 22 98/49 (65) 95 11/21/18 22:00 85 22 92/42 (59) 95 11/21/18 21:30 Nasal Cannula 4.0 11/21/18 21:18 95 11/21/18 21:15 99.5 95 22 102/42 (62) 95 11/21/18 21:00 Nasal Cannula 2.0 11/21/18 20:00 99.0 94 24 103/65 (78) 93 11/21/18 16:00 96 11/21/18 16:00 98.1 89 18 114/74 (87) 99 11/21/18 14:34 106/63 11/21/18 12:00 89 11/21/18 12:00 98.6 89 18 106/63 (77) 98 Status: obtunded Condition: critical HEENT: atraumatic Heart: HR/BP stable Abdomen: active bowel sounds Extremities: edema Decubiti: location Micro: Microbiology Date/Time Source Procedure Growth Status 11/20/18 10:32 Nasal Nares MRSA Culture - Final NO METHICILLIN RESISTANT STAPH AUREUS... Complete 11/20/18 10:32 Rectum VRE Culture - Final NO VANCOMYCIN RESISTANT ENTEROCOCCUS ... Complete Critical Care - Subjective ROS Limited/Unobtainable: Yes ICU Day: 2 Interval Events: 63year old male with hx of ESRD on HD, Diabetes Mellitus, cirrhosis, was [facility] to [facility] on 11/20 with 2 say history of dizziness associated with confusion and hallucinations. Condition: critical FI02: 36 CXR: cardiomegaly, pulmonary edema Labs: Laboratory Tests Test 11/21/18 11:40 11/21/18 20:00 11/21/18 20:16 11/21/18 20:20 Hepatitis B Surface Antigen Pending White Blood Count 13.5 K/UL (4.8-10.8) H Red Blood Count 3.30 M/UL (4.70-6.10) L Hemoglobin 10.4 G/DL (14.2-18.0) L Hematocrit 31.0 % (42.0-52.0) L Mean Corpuscular Volume 94 FL (80-99) Mean Corpuscular Hemoglobin 31.4 PG (27.0-31.0) H Mean Corpuscular Hemoglobin Concent 33.5 G/DL (32.0-36.0) Red Cell Distribution Width 15.2 % (11.6-14.8) H Platelet Count 233 K/UL (150-450) Mean Platelet Volume 8.5 FL (6.5-10.1) Neutrophils (%) (Auto) 83.9 % (45.0-75.0) H Lymphocytes (%) (Auto) 10.6 % (20.0-45.0) L Monocytes (%) (Auto) 5.1 % (1.0-10.0) Eosinophils (%) (Auto) 0.0 % (0.0-3.0) Basophils (%) (Auto) 0.3 % (0.0-2.0) Sodium Level 133 MMOL/L (136-145) L Potassium Level 3.9 MMOL/L (3.5-5.1) Chloride Level 94 MMOL/L (98-107) L Carbon Dioxide Level 22 MMOL/L (21-32) Anion Gap 17 mmol/L (5-15) H Blood Urea Nitrogen 78 mg/dL (7-18) H Creatinine 5.9 MG/DL (0.55-1.30) H Estimat Glomerular Filtration Rate 9.8 mL/min (>60) Glucose Level 149 MG/DL (74-106) H Calcium Level 8.3 MG/DL (8.5-10.1) L Arterial Blood pH 7.533 (7.350-7.450) Arterial Blood Partial Pressure CO2 27.5 mmHg (35.0-45.0) L Arterial Blood Partial Pressure O2 48.6 mmHg (75.0-100.0) Arterial Blood HCO3 22.6 mmol/L (22.0-26.0) Arterial Blood Oxygen Saturation 83.7 % (95-100) *L Arterial Blood Base Excess 0.8 (-2-2) Julio Test Positive Ammonia 55 umol/L (11-32) H Test 11/22/18 05:12 11/22/18 09:17 White Blood Count 14.9 K/UL (4.8-10.8) H Red Blood Count 3.45 M/UL (4.70-6.10) L Hemoglobin 11.0 G/DL (14.2-18.0) L Hematocrit 34.0 % (42.0-52.0) L Mean Corpuscular Volume 98 FL (80-99) Mean Corpuscular Hemoglobin 31.7 PG (27.0-31.0) H Mean Corpuscular Hemoglobin Concent 32.3 G/DL (32.0-36.0) Red Cell Distribution Width 15.8 % (11.6-14.8) H Platelet Count 236 K/UL (150-450) Mean Platelet Volume 9.3 FL (6.5-10.1) Neutrophils (%) (Auto) % (45.0-75.0) Lymphocytes (%) (Auto) % (20.0-45.0) Monocytes (%) (Auto) % (1.0-10.0) Eosinophils (%) (Auto) % (0.0-3.0) Basophils (%) (Auto) % (0.0-2.0) Sodium Level 133 MMOL/L (136-145) L Potassium Level 4.0 MMOL/L (3.5-5.1) Chloride Level 92 MMOL/L (98-107) L Carbon Dioxide Level 22 MMOL/L (21-32) Anion Gap 19 mmol/L (5-15) H Blood Urea Nitrogen 81 mg/dL (7-18) H Creatinine 6.4 MG/DL (0.55-1.30) H Estimat Glomerular Filtration Rate 8.9 mL/min (>60) Glucose Level 120 MG/DL (74-106) H Uric Acid 7.0 MG/DL (2.6-7.2) Calcium Level 8.4 MG/DL (8.5-10.1) L Phosphorus Level 8.4 MG/DL (2.5-4.9) H Magnesium Level 2.0 MG/DL (1.8-2.4) Total Bilirubin 5.2 MG/DL (0.2-1.0) H Direct Bilirubin 4.3 MG/DL (0.0-0.3) H Gamma Glutamyl Transpeptidase 861 U/L (5-85) H Aspartate Amino Transf (AST/SGOT) 49 U/L (15-37) H Alanine Aminotransferase (ALT/SGPT) 40 U/L (12-78) Alkaline Phosphatase 587 U/L (46-116) H Ammonia 27 umol/L (11-32) Total Protein 7.2 G/DL (6.4-8.2) Albumin 2.4 G/DL (3.4-5.0) L Globulin 4.8 g/dL Albumin/Globulin Ratio 0.5 (1.0-2.7) L Arterial Blood pH 7.439 (7.350-7.450) Arterial Blood Partial Pressure CO2 26.5 mmHg (35.0-45.0) L Arterial Blood Partial Pressure O2 62.7 mmHg (75.0-100.0) L Arterial Blood HCO3 17.6 mmol/L (22.0-26.0) *L Arterial Blood Oxygen Saturation 89.6 % (95-100) *L Arterial Blood Base Excess -5.2 (-2-2) L Julio Test N/a Wallace Rosales MD Nov 22, 2018 09:37
--- NOTE | 2018-11-22 10:01 | Diagnostic Imaging Report ---
Indication: Dyspnea Comparison: 11/21/2018 A single view chest radiograph was obtained. Findings: Patchy infiltrates demonstrated bilaterally versus heterogeneous pulmonary edema. Heart is enlarged. Bones are osteopenic. IMPRESSION: Patchy infiltrates versus heterogeneous pulmonary edema. Correlate clinically. No change
--- NOTE | 2018-11-22 10:34 | Diagnostic Imaging Report ---
Indication: Dyspnea Comparison: None A single view chest radiograph was obtained. Findings: Probably vascular congestion suspected with cardiomegaly and no definite pleural effusions. Additional patchy densities may be infiltrate or associated with the pulmonary edema. IMPRESSION: Pulmonary vascular congestion/CHF
[2018-11-22] MEDS ORDERED: Digoxin 0.5mg/2ml Inj IVP SCH (10:35)
--- NOTE | 2018-11-22 10:38 | Nephrology Progress Note ---
Assessment/Plan Problem List: (1) ESRD (end stage renal disease) (2) Diabetic nephropathy (3) Shingles (4) Hypotension (5) Liver cirrhosis (6) Cardiomyopathy Assessment: low Ej Fx Assessment 1. Vertigo. 2. Right chest pain. 3. Herpes zoster. 4. End-stage renal disease. 5. Diabetes type 2. 6. Hypertension. 7. History of congestive heart failure. 8. Cirrhosis of liver. Plan Dig- Low dose Sanford Inhibitors HD in am continue per current management GI eval Midodrine Phos binders check ammonia per orders Subjective ROS Limited/Unobtainable: No Constitutional: Reports: malaise, weakness Objective Objective Last 24 Hour Vital Signs Date Time Temp Pulse Resp B/P (MAP) Pulse Ox O2 Delivery O2 Flow Rate FiO2 11/22/18 10:00 94 20 116/58 (77) 96 11/22/18 09:00 92 20 139/70 (93) 96 11/22/18 08:00 98.2 90 20 137/64 (88) 96 11/22/18 08:00 Nasal Cannula 4.0 11/22/18 07:00 92 18 132/67 (88) 98 11/22/18 06:00 88 18 130/65 (86) 98 11/22/18 05:07 90 18 117/57 (77) 96 11/22/18 04:27 90 11/22/18 04:00 Nasal Cannula 4.0 11/22/18 04:00 98.5 92 20 115/60 (78) 96 11/22/18 03:00 94 19 119/74 (89) 96 11/22/18 02:00 90 20 117/50 (72) 95 11/22/18 01:00 90 18 121/45 (70) 97 11/22/18 00:36 84 11/22/18 00:34 Nasal Cannula 4.0 11/22/18 00:00 98.8 84 18 101/49 (66) 97 11/21/18 23:19 97 Nasal Cannula 4.0 36 11/21/18 23:00 85 22 98/49 (65) 95 11/21/18 22:00 85 22 92/42 (59) 95 11/21/18 21:30 Nasal Cannula 4.0 11/21/18 21:18 95 11/21/18 21:15 99.5 95 22 102/42 (62) 95 11/21/18 21:00 Nasal Cannula 2.0 11/21/18 20:00 99.0 94 24 103/65 (78) 93 11/21/18 16:00 96 11/21/18 16:00 98.1 89 18 114/74 (87) 99 11/21/18 14:34 106/63 11/21/18 12:00 89 11/21/18 12:00 98.6 89 18 106/63 (77) 98 Laboratory Tests 11/21/18 11:40: Hepatitis B Surface Antigen [Pending] 11/21/18 20:00: White Blood Count 13.5H, Red Blood Count 3.30L, Hemoglobin 10.4L, Hematocrit 31.0L, Mean Corpuscular Volume 94, Mean Corpuscular Hemoglobin 31.4H, Mean Corpuscular Hemoglobin Concent 33.5, Red Cell Distribution Width 15.2H, Platelet Count 233, Mean Platelet Volume 8.5, Neutrophils (%) (Auto) 83.9H, Lymphocytes (%) (Auto) 10.6L, Monocytes (%) (Auto) 5.1, Eosinophils (%) (Auto) 0.0, Basophils (%) (Auto) 0.3, Sodium Level 133L, Potassium Level 3.9, Chloride Level 94L, Carbon Dioxide Level 22, Anion Gap 17H, Blood Urea Nitrogen 78H, Creatinine 5.9H, Estimat Glomerular Filtration Rate 9.8, Glucose Level 149H, Calcium Level 8.3L 11/21/18 20:16: Arterial Blood pH 7.533H, Arterial Blood Partial Pressure CO2 27.5L, Arterial Blood Partial Pressure O2 48.6*L, Arterial Blood HCO3 22.6, Arterial Blood Oxygen Saturation 83.7*L, Arterial Blood Base Excess 0.8, Julio Test Positive 11/21/18 20:20: Ammonia 55H 11/22/18 05:12: White Blood Count 14.9H, Red Blood Count 3.45L, Hemoglobin 11.0L, Hematocrit 34.0L, Mean Corpuscular Volume 98, Mean Corpuscular Hemoglobin 31.7H, Mean Corpuscular Hemoglobin Concent 32.3, Red Cell Distribution Width 15.8H, Platelet Count 236, Mean Platelet Volume 9.3, Neutrophils (%) (Auto) , Lymphocytes (%) (Auto) , Monocytes (%) (Auto) , Eosinophils (%) (Auto) , Basophils (%) (Auto) , Sodium Level 133L, Potassium Level 4.0, Chloride Level 92L, Carbon Dioxide Level 22, Anion Gap 19H, Blood Urea Nitrogen 81H, Creatinine 6.4H, Estimat Glomerular Filtration Rate 8.9, Glucose Level 120H, Uric Acid 7.0, Calcium Level 8.4L, Phosphorus Level 8.4H, Magnesium Level 2.0, Total Bilirubin 5.2H, Direct Bilirubin 4.3H, Gamma Glutamyl Transpeptidase 861H , Aspartate Amino Transf (AST/SGOT) 49H, Alanine Aminotransferase (ALT/SGPT) 40 , Alkaline Phosphatase 587H, Ammonia 27, Total Protein 7.2, Albumin 2.4L, Globulin 4.8, Albumin/Globulin Ratio 0.5L 11/22/18 09:17: Arterial Blood pH 7.439, Arterial Blood Partial Pressure CO2 26.5L, Arterial Blood Partial Pressure O2 62.7L, Arterial Blood HCO3 17.6*L, Arterial Blood Oxygen Saturation 89.6*L, Arterial Blood Base Excess -5.2L, Julio Test N/a Height (Feet): 5 Height (Inches): 6.00 Weight (Pounds): 126 General Appearance: lethargic Cardiovascular: tachycardia Respiratory/Chest: decreased breath sounds Abdomen: distended Randy Jeter MD Nov 22, 2018 10:38
--- NOTE | 2018-11-22 10:38 | GI Initial Consult Note ---
History of Present Illness General Date patient seen: Nov 22, 2018 Time patient seen: 10:25 Referring physician: NALDO CHARLES Reason for Consultation: CIRRHOSIS Present Illness HPI 63-year-old male with a history of end-stage renal disease on dialysis, diabetes mellitus on insulin, cirrhosis heart failure, chronic renal failure, and right femoral fracture status post ORIF presents today for 2-day history of intermittent episodes of dizziness initiated will consider sending him for an visual hallucinations. Daughter at bedside. ROS limited at this time, patient be able to provide any significant history due to lethargic. GI consulted for reported cirrhosis, hepatic encephalopathy. Labs reviewed; WBC of 14.9, hemoglobin of 11, Elevated GGT and elevated total bilirubin. According to the daughter, the patient had a recent admission for [facility], she states she will bring in the patients records. Unknown history of endoscopic colonoscopy at this time. Med list reviewed/reconciled: Yes Allergies: Coded Allergies: No Known Allergies (Unverified , 11/20/18) Patient History PMH Narrative 1. Diabetes type 2. 2. Hypertension. 3. End-stage renal disease, on hemodialysis every Thursday, , and Thursday. 4. Congestive heart failure. 5. Cirrhosis of liver. Social History: Reports: alcohol use Review of Systems All Other Systems: negative except mentioned in HPI Physical Exam Vital Signs Date Time Temp Pulse Resp B/P (MAP) Pulse Ox O2 Delivery O2 Flow Rate FiO2 11/20/18 10:15 97.9 89 18 119/72 (88) 100 11/20/18 11:02 Room Air 11/21/18 21:00 2.0 11/21/18 23:19 36 Sp02 EP Interpretation: reviewed, normal Labs Laboratory Tests Test 11/21/18 11:40 11/21/18 20:00 11/21/18 20:16 11/21/18 20:20 Hepatitis B Surface Antigen Pending White Blood Count 13.5 K/UL (4.8-10.8) H Red Blood Count 3.30 M/UL (4.70-6.10) L Hemoglobin 10.4 G/DL (14.2-18.0) L Hematocrit 31.0 % (42.0-52.0) L Mean Corpuscular Volume 94 FL (80-99) Mean Corpuscular Hemoglobin 31.4 PG (27.0-31.0) H Mean Corpuscular Hemoglobin Concent 33.5 G/DL (32.0-36.0) Red Cell Distribution Width 15.2 % (11.6-14.8) H Platelet Count 233 K/UL (150-450) Mean Platelet Volume 8.5 FL (6.5-10.1) Neutrophils (%) (Auto) 83.9 % (45.0-75.0) H Lymphocytes (%) (Auto) 10.6 % (20.0-45.0) L Monocytes (%) (Auto) 5.1 % (1.0-10.0) Eosinophils (%) (Auto) 0.0 % (0.0-3.0) Basophils (%) (Auto) 0.3 % (0.0-2.0) Sodium Level 133 MMOL/L (136-145) L Potassium Level 3.9 MMOL/L (3.5-5.1) Chloride Level 94 MMOL/L (98-107) L Carbon Dioxide Level 22 MMOL/L (21-32) Anion Gap 17 mmol/L (5-15) H Blood Urea Nitrogen 78 mg/dL (7-18) H Creatinine 5.9 MG/DL (0.55-1.30) H Estimat Glomerular Filtration Rate 9.8 mL/min (>60) Glucose Level 149 MG/DL (74-106) H Calcium Level 8.3 MG/DL (8.5-10.1) L Arterial Blood pH 7.533 (7.350-7.450) Arterial Blood Partial Pressure CO2 27.5 mmHg (35.0-45.0) L Arterial Blood Partial Pressure O2 48.6 mmHg (75.0-100.0) Arterial Blood HCO3 22.6 mmol/L (22.0-26.0) Arterial Blood Oxygen Saturation 83.7 % (95-100) *L Arterial Blood Base Excess 0.8 (-2-2) Julio Test Positive Ammonia 55 umol/L (11-32) H Test 11/22/18 05:12 11/22/18 09:17 White Blood Count 14.9 K/UL (4.8-10.8) H Red Blood Count 3.45 M/UL (4.70-6.10) L Hemoglobin 11.0 G/DL (14.2-18.0) L Hematocrit 34.0 % (42.0-52.0) L Mean Corpuscular Volume 98 FL (80-99) Mean Corpuscular Hemoglobin 31.7 PG (27.0-31.0) H Mean Corpuscular Hemoglobin Concent 32.3 G/DL (32.0-36.0) Red Cell Distribution Width 15.8 % (11.6-14.8) H Platelet Count 236 K/UL (150-450) Mean Platelet Volume 9.3 FL (6.5-10.1) Neutrophils (%) (Auto) % (45.0-75.0) Lymphocytes (%) (Auto) % (20.0-45.0) Monocytes (%) (Auto) % (1.0-10.0) Eosinophils (%) (Auto) % (0.0-3.0) Basophils (%) (Auto) % (0.0-2.0) Sodium Level 133 MMOL/L (136-145) L Potassium Level 4.0 MMOL/L (3.5-5.1) Chloride Level 92 MMOL/L (98-107) L Carbon Dioxide Level 22 MMOL/L (21-32) Anion Gap 19 mmol/L (5-15) H Blood Urea Nitrogen 81 mg/dL (7-18) H Creatinine 6.4 MG/DL (0.55-1.30) H Estimat Glomerular Filtration Rate 8.9 mL/min (>60) Glucose Level 120 MG/DL (74-106) H Uric Acid 7.0 MG/DL (2.6-7.2) Calcium Level 8.4 MG/DL (8.5-10.1) L Phosphorus Level 8.4 MG/DL (2.5-4.9) H Magnesium Level 2.0 MG/DL (1.8-2.4) Total Bilirubin 5.2 MG/DL (0.2-1.0) H Direct Bilirubin 4.3 MG/DL (0.0-0.3) H Gamma Glutamyl Transpeptidase 861 U/L (5-85) H Aspartate Amino Transf (AST/SGOT) 49 U/L (15-37) H Alanine Aminotransferase (ALT/SGPT) 40 U/L (12-78) Alkaline Phosphatase 587 U/L (46-116) H Ammonia 27 umol/L (11-32) Total Protein 7.2 G/DL (6.4-8.2) Albumin 2.4 G/DL (3.4-5.0) L Globulin 4.8 g/dL Albumin/Globulin Ratio 0.5 (1.0-2.7) L Arterial Blood pH 7.439 (7.350-7.450) Arterial Blood Partial Pressure CO2 26.5 mmHg (35.0-45.0) L Arterial Blood Partial Pressure O2 62.7 mmHg (75.0-100.0) L Arterial Blood HCO3 17.6 mmol/L (22.0-26.0) *L Arterial Blood Oxygen Saturation 89.6 % (95-100) *L Arterial Blood Base Excess -5.2 (-2-2) L Julio Test N/a General Appearance: well appearing, no apparent distress, alert Head: normocephalic EENT: PERRL/EOMI, normal ENT inspection Neck: supple Respiratory: normal breath sounds, no respiratory distress Cardiovascular: normal rate Gastrointestinal: normal inspection, non tender, soft, normal bowel sounds, non -distended Rectal: deferred Genitourinary: deferred Musculoskeletal: normal inspection, back normal Neurologic: normal inspection, alert, oriented x3, responsive Psychiatric: normal inspection, judgement/insight normal, memory normal Skin: normal inspection, normal color, no rash, warm/dry, palpation normal, well hydrated Lymphatic: normal inspection, no adenopathy Current Medications Current Medications Medications (Trade) Dose Ordered Sig/Karthik Route PRN Reason Start Time Stop Time Status Last Admin Dose Admin Acetaminophen (Tylenol) 650 mg Q4H PRN ORAL fever 11/22/18 00:15 12/20/18 12:14 Acyclovir 300 mg/ Dextrose 275 ml @ 275 mls/hr Q24H IV 11/22/18 18:00 12/21/18 17:59 Aspirin (ASA) 81 mg DAILY ORAL 11/22/18 09:00 12/21/18 13:59 11/22/18 08:09 Dextrose (Dextrose 50%) 25 ml Q30M PRN IV Hypoglycemia 11/21/18 22:15 12/20/18 12:14 Dextrose (Dextrose 50%) 50 ml Q30M PRN IV Hypoglycemia 11/21/18 22:30 12/20/18 12:29 Docusate Sodium (Colace) 100 mg TWICE A DAY ORAL 11/22/18 09:00 12/20/18 17:59 11/22/18 08:10 Lorazepam (Ativan 2mg/ml 1ml) 0.5 mg Q4H PRN IV For Anxiety 11/22/18 00:15 11/27/18 12:14 Midodrine (Pro-Amatine) 10 mg THREE TIMES A DAY ORAL 11/22/18 09:00 12/20/18 12:59 11/22/18 08:09 Morphine Sulfate (Morphine Sulfate) 1 mg Q4H PRN IVP For Pain 11/22/18 01:00 11/27/18 12:59 Nitroglycerin (Ntg) 1 patch Q24H TDERMAL 11/22/18 14:00 12/21/18 13:59 Ondansetron HCl (Zofran) 4 mg Q6H PRN IVP Nausea & Vomiting 11/22/18 00:15 12/20/18 12:14 Pantoprazole (Protonix) 40 mg EVERY 12 HOURS ORAL 11/22/18 09:00 12/20/18 20:59 11/22/18 08:09 Polyethylene Glycol (Miralax) 17 gm HSPRN PRN ORAL Constipation 11/22/18 12:15 12/20/18 12:14 Promethazine HCl/ Codeine (Phenergan with Codeine) 5 ml Q8H PRN ORAL For Cough 11/22/18 00:00 12/21/18 15:59 Sevelamer Carbonate (Renvela) 1,600 mg THREE TIMES A DAY ORAL 11/22/18 09:00 12/21/18 14:59 11/22/18 08:10 Sucralfate (Carafate) 1 gm BEFORE MEALS ORAL 11/22/18 06:30 12/20/18 16:29 Zolpidem Tartrate (Ambien) 5 mg HSPRN PRN ORAL Insomnia 11/22/18 12:15 11/27/18 12:14 GI: Plan Problems: (1) Diabetes mellitus (2) Severe protein-calorie malnutrition (3) Acute metabolic encephalopathy (4) Liver cirrhosis (5) ESRD (end stage renal disease) Plan [facility] done August 23, 2018. Negative for biliary ductal dilation. No CBD dilation. - Abdominal US done August 20, 2018. Early Cirrhosis with mod amounts of ascites. - CT AP done August 20, 2018. Cholelithiasis with GB wall edema and thickening most likely 2/2 to hepatocellular disease. - s/p EGD done 10/22/2018 fu Abdominal ultrasound Lactulose + xifaxan anemia work up OB stool r/o GI bleed, we will consider endoscopy pending work up monitor H&H, prn transfusions ppi fu labs, trend LFTs, ammonia level,hepatitis panel Discussed with Dr. Henry. Thank you for this patient referral, we will follow. The patient was seen and examined at bedside and all new and available data was reviewed in the patients chart. I agree with the above findings, impression and plan. (Patient seen earlier today. Signature stamp does not reflect patient encounter time.). - MD Mechelle Silverio AnhKatie OTR [employer] Nov 22, 2018 10:38
--- NOTE | 2018-11-22 10:54 | Diagnostic Imaging Report ---
Indication: NG tube placement Comparison: None Single view of the abdomen obtained Findings: NG tube tip is within the stomach. The side-port is within the stomach lumen but very close to the EG junction. Suggest advancing the tube about 5 cm additionally. Impression: NG tube is satisfactory in position. However suggest advancing by 5 cm for more optimal positioning
[2018-11-22] MEDS: Lisinopril 2.5mg tab ORAL SCH ×2 (11:18→18:02)
--- NOTE | 2018-11-22 12:11 | NUR ---
NURSE NOTES: Patient turned and repositioned.Mouth care done,HOb elevated at 35 degree to prevent aspiration.Kept clean dry and comfortable..
[2018-11-22] MEDS ORDERED: Zolpidem 5mg tab ORAL PRN (12:15)
[2018-11-22] MEDS ORDERED: Miralax 17gm pkt ORAL PRN (12:15)
[2018-11-22] MEDS: Lactulose 10gm/15ml UDC ORAL SCH ×2 (13:09→18:01)
[2018-11-22] MEDS ORDERED: Acetaminophen 650mg/20.3ml NG PRN (13:45)
[2018-11-22] MEDS ORDERED: Nitroglycerin Patch 0.4mg TDERMAL SCH (14:00)
--- NOTE | 2018-11-22 14:06 | NUR ---
NURSE NOTES: Patient asleep and easily arousal to verbal and tactile stimuli.Family at bedside and update given.Turned and repositioned.Kept clean dry and comfortable.
--- NOTE | 2018-11-22 14:47 | NUR ---
NURSE NOTES: PT on oxygen via NC at 4LPM and saturate between 88-90%.Placed on high flow oxygen at 50% and Dr Rosales made aware
--- NOTE | 2018-11-22 16:20 | NUR ---
CASE MANAGEMENT: INITIAL REVIEW 63 YO M ALEXANDER FROM [facility] CC: RIGHT SIDED CHEST PAIN PMHx; DENIES SI:ZOSTER. T 97.9 HR 89 RR 18 B/P 119/72 SATS 100% ON RA NA 133 CL 94 BUN 78 CR 5.9 GLU 149 CA 8.3 IS: PROTONIX PO Q12H RIFAXIMIN PO Q12H LISINOPRIL PO BID ASA PO QD CARAFATE PO QMEALS ACYCLOVIR IV Q24H PATIENT ADMITTED TO ICU 11/20/2018 @ 1144 DCP: PATIENT TO BE DISCHARGED ONCE MEDICALLY CLEARED. Addendum: 11/23/18 at 1439 by Palak Vanessa CM INTERQUAL MET
--- NOTE | 2018-11-22 16:21 | NUR ---
NURSE NOTES: Family at bedside, pt remains responsive only to deep pain.On high flow oxygen at 50% and saturating at 98%. Kept on close monitoring
--- NOTE | 2018-11-22 16:34 | Consultation ---
History of Present Illness General Date patient seen: Nov 22, 2018 Referring physician: NALDO CHARLES Reason for Consultation: Leukocytosis Present Illness HPI Mr. Causey is a 63 yo male with PMHx of HTN, DM with ESRD on HD, Cirrhosis and CHF who presented to [facility] with 5hrs of dizziness and right sided chest pain. He was on valtrex for a shingles rash that has since resolved. In the ED his WBCs were 11 but they have now increased to 14. His has remained afebrile. His AlkP is elevated and an US is pending. His GGT is also high at 861. The patient is currently is responsive only to pain. He has not had HD yet. ID was consulted for leukocytosis PMHx/PSHx HTN DM ESRD on HD Cirrhosis CHF SocHx No E/T/D FamHx Unable to obtain Allergies: Coded Allergies: No Known Allergies (Unverified , 11/20/18) Patient History Healthcare decision maker Resuscitation status Full Code Advanced Directive on File Review of Systems ROS Narrative Unable to obtain as patient not verbal Physical Exam Last 24 Hour Vital Signs Date Time Temp Pulse Resp B/P (MAP) Pulse Ox O2 Delivery O2 Flow Rate FiO2 11/22/18 15:00 95 26 119/58 (78) 100 11/22/18 14:00 99 26 133/55 (81) 93 11/22/18 13:09 129/56 11/22/18 13:00 97 20 129/58 (81) 96 11/22/18 12:00 98.5 96 20 124/60 (81) 96 11/22/18 12:00 Nasal Cannula 4.0 11/22/18 12:00 95 11/22/18 11:19 94 11/22/18 11:18 124/59 11/22/18 11:00 94 20 124/59 (80) 96 11/22/18 10:00 94 20 116/58 (77) 96 11/22/18 09:00 92 20 139/70 (93) 96 11/22/18 08:00 92 11/22/18 08:00 98.2 90 20 137/64 (88) 96 11/22/18 08:00 Nasal Cannula 4.0 11/22/18 07:00 92 18 132/67 (88) 98 11/22/18 06:00 88 18 130/65 (86) 98 11/22/18 05:07 90 18 117/57 (77) 96 11/22/18 04:27 90 11/22/18 04:00 Nasal Cannula 4.0 11/22/18 04:00 98.5 92 20 115/60 (78) 96 11/22/18 03:00 94 19 119/74 (89) 96 11/22/18 02:00 90 20 117/50 (72) 95 11/22/18 01:00 90 18 121/45 (70) 97 11/22/18 00:36 84 11/22/18 00:34 Nasal Cannula 4.0 11/22/18 00:00 98.8 84 18 101/49 (66) 97 11/21/18 23:19 97 Nasal Cannula 4.0 36 11/21/18 23:00 85 22 98/49 (65) 95 11/21/18 22:00 85 22 92/42 (59) 95 11/21/18 21:30 Nasal Cannula 4.0 11/21/18 21:18 95 11/21/18 21:15 99.5 95 22 102/42 (62) 95 11/21/18 21:00 Nasal Cannula 2.0 11/21/18 20:00 99.0 94 24 103/65 (78) 93 Laboratory Tests Test 11/21/18 20:00 11/21/18 20:16 11/21/18 20:20 11/22/18 05:12 White Blood Count 13.5 K/UL (4.8-10.8) H 14.9 K/UL (4.8-10.8) H Red Blood Count 3.30 M/UL (4.70-6.10) L 3.45 M/UL (4.70-6.10) L Hemoglobin 10.4 G/DL (14.2-18.0) L 11.0 G/DL (14.2-18.0) L Hematocrit 31.0 % (42.0-52.0) L 34.0 % (42.0-52.0) L Mean Corpuscular Volume 94 FL (80-99) 98 FL (80-99) Mean Corpuscular Hemoglobin 31.4 PG (27.0-31.0) H 31.7 PG (27.0-31.0) H Mean Corpuscular Hemoglobin Concent 33.5 G/DL (32.0-36.0) 32.3 G/DL (32.0-36.0) Red Cell Distribution Width 15.2 % (11.6-14.8) H 15.8 % (11.6-14.8) H Platelet Count 233 K/UL (150-450) 236 K/UL (150-450) Mean Platelet Volume 8.5 FL (6.5-10.1) 9.3 FL (6.5-10.1) Neutrophils (%) (Auto) 83.9 % (45.0-75.0) H % (45.0-75.0) Lymphocytes (%) (Auto) 10.6 % (20.0-45.0) L % (20.0-45.0) Monocytes (%) (Auto) 5.1 % (1.0-10.0) % (1.0-10.0) Eosinophils (%) (Auto) 0.0 % (0.0-3.0) % (0.0-3.0) Basophils (%) (Auto) 0.3 % (0.0-2.0) % (0.0-2.0) Sodium Level 133 MMOL/L (136-145) L 133 MMOL/L (136-145) L Potassium Level 3.9 MMOL/L (3.5-5.1) 4.0 MMOL/L (3.5-5.1) Chloride Level 94 MMOL/L (98-107) L 92 MMOL/L (98-107) L Carbon Dioxide Level 22 MMOL/L (21-32) 22 MMOL/L (21-32) Anion Gap 17 mmol/L (5-15) H 19 mmol/L (5-15) H Blood Urea Nitrogen 78 mg/dL (7-18) H 81 mg/dL (7-18) H Creatinine 5.9 MG/DL (0.55-1.30) H 6.4 MG/DL (0.55-1.30) H Estimat Glomerular Filtration Rate 9.8 mL/min (>60) 8.9 mL/min (>60) Glucose Level 149 MG/DL (74-106) H 120 MG/DL (74-106) H Calcium Level 8.3 MG/DL (8.5-10.1) L 8.4 MG/DL (8.5-10.1) L Arterial Blood pH 7.533 (7.350-7.450) Arterial Blood Partial Pressure CO2 27.5 mmHg (35.0-45.0) L Arterial Blood Partial Pressure O2 48.6 mmHg (75.0-100.0) Arterial Blood HCO3 22.6 mmol/L (22.0-26.0) Arterial Blood Oxygen Saturation 83.7 % (95-100) *L Arterial Blood Base Excess 0.8 (-2-2) Julio Test Positive Ammonia 55 umol/L (11-32) H 27 umol/L (11-32) Uric Acid 7.0 MG/DL (2.6-7.2) Phosphorus Level 8.4 MG/DL (2.5-4.9) H Magnesium Level 2.0 MG/DL (1.8-2.4) Total Bilirubin 5.2 MG/DL (0.2-1.0) H Direct Bilirubin 4.3 MG/DL (0.0-0.3) H Gamma Glutamyl Transpeptidase 861 U/L (5-85) H Aspartate Amino Transf (AST/SGOT) 49 U/L (15-37) H Alanine Aminotransferase (ALT/SGPT) 40 U/L (12-78) Alkaline Phosphatase 587 U/L (46-116) H Total Protein 7.2 G/DL (6.4-8.2) Albumin 2.4 G/DL (3.4-5.0) L Globulin 4.8 g/dL Albumin/Globulin Ratio 0.5 (1.0-2.7) L Test 11/22/18 09:17 Arterial Blood pH 7.439 (7.350-7.450) Arterial Blood Partial Pressure CO2 26.5 mmHg (35.0-45.0) L Arterial Blood Partial Pressure O2 62.7 mmHg (75.0-100.0) L Arterial Blood HCO3 17.6 mmol/L (22.0-26.0) *L Arterial Blood Oxygen Saturation 89.6 % (95-100) *L Arterial Blood Base Excess -5.2 (-2-2) L Julio Test N/a Height (Feet): 5 Height (Inches): 6.00 Weight (Pounds): 126 Medications Current Medications Medications (Trade) Dose Ordered Sig/Karthik Route PRN Reason Start Time Stop Time Status Last Admin Dose Admin Acetaminophen (Tylenol) 650 mg Q4H PRN NG fever 11/22/18 13:45 12/20/18 12:14 Acyclovir 300 mg/ Dextrose 275 ml @ 275 mls/hr Q24H IV 11/22/18 18:00 12/21/18 17:59 Aspirin (ASA) 81 mg DAILY ORAL 11/22/18 09:00 12/21/18 13:59 11/22/18 08:09 Dextrose (Dextrose 50%) 25 ml Q30M PRN IV Hypoglycemia 11/21/18 22:15 12/20/18 12:14 Dextrose (Dextrose 50%) 50 ml Q30M PRN IV Hypoglycemia 11/21/18 22:30 12/20/18 12:29 Docusate Sodium (Colace) 100 mg THREE TIMES A DAY NG 11/22/18 18:00 12/22/18 17:59 Lactulose (Cephulac) 10 gm THREE TIMES A DAY ORAL 11/22/18 13:00 12/22/18 12:59 11/22/18 13:09 Lisinopril (Zestril) 2.5 mg BID ORAL 11/22/18 10:45 12/22/18 10:44 11/22/18 11:18 Lorazepam (Ativan 2mg/ml 1ml) 0.5 mg Q4H PRN IV For Anxiety 11/22/18 00:15 11/27/18 12:14 Midodrine (Pro-Amatine) 10 mg THREE TIMES A DAY ORAL 11/22/18 09:00 12/20/18 12:59 11/22/18 13:10 Nitroglycerin (Ntg) 1 patch Q24H TDERMAL 11/22/18 14:00 12/21/18 13:59 11/22/18 13:09 Ondansetron HCl (Zofran) 4 mg Q6H PRN IVP Nausea & Vomiting 11/22/18 00:15 12/20/18 12:14 Pantoprazole (Protonix) 40 mg EVERY 12 HOURS ORAL 11/22/18 09:00 12/20/18 20:59 11/22/18 08:09 Polyethylene Glycol (Miralax) 17 gm HSPRN PRN ORAL Constipation 11/22/18 12:15 12/20/18 12:14 Promethazine HCl/ Codeine (Phenergan with Codeine) 5 ml Q8H PRN ORAL For Cough 11/22/18 00:00 12/21/18 15:59 Rifaximin (Xifaxan) 550 mg EVERY 12 HOURS ORAL 11/22/18 21:00 11/29/18 20:59 Sevelamer Carbonate (Renvela) 1,600 mg THREE TIMES A DAY ORAL 11/22/18 09:00 12/21/18 14:59 11/22/18 13:10 Sucralfate (Carafate) 1 gm BEFORE MEALS ORAL 11/22/18 06:30 12/20/18 16:29 11/22/18 11:18 Zolpidem Tartrate (Ambien) 5 mg HSPRN PRN ORAL Insomnia 11/22/18 12:15 11/27/18 12:14 Objective Narrative Gen: NAD HEENT: NCAT, MMM, PERRL, No Oral lesion, no scleral icterus NECK: supple, No LAD, No JVD LUNGS: CTAB, No W/C, No Accessory muscle use CARDS: RRR, S1, S2, No M/R/G, ABD: Soft, ND, No R/G, + BS, No HSM, No Masses : Deferred Ext: C/C/E, Pulses 2+ B/L (DP, Rad): NEURO: A/O x 0, Has pain response SKIN: Warm/dry, There is a remnant of healing zoster rash on the right chest. Assessment/Plan Assessment/Plan: 63 yo male with PMHx of HTN, DM with ESRD on HD, Cirrhosis and CHF who presented to [facility] with 5hrs of dizziness and right sided chest pain. Leukocytosis and encephalopathy Unclear source Cholecystitis ? vs Meningitis ? vs missing HD CXR 11/21/18 - Pulmonary vascular congestion/CHF Zoster S/P Tx Acyclovir and pred x 1 week Dizziness - Resolved Chest pain - Resolved PLAN: - Start Ceftriaxone and Vancomcyin for Cholecystitis or other source of sepsis. - Contiue Acyclovir #7 for now - Consider LP if mental status not improved after HD - f/u US abd - Monitor CBC and Temps - f/u Blood Cx and UA Thank you for this consult. We will continue to follow the patient during this hospitalization. Román Monroy MD Nov 22, 2018 16:34
--- NOTE | 2018-11-22 17:04 | Diagnostic Imaging Report ---
Indication: Abdominal pain Technique: Grayscale and duplex Doppler imaging of the abdomen performed. Comparison: None Findings: The liver is unremarkable. Doppler interrogation of the main portal vein shows patency with hepatopedal, monophasic flow. There is no biliary ductal dilitation identified. The CBD measures 3.4 mm. The gallbladder is notable for stone. There is thickening of the gallbladder wall. Sonographic blood's sign was negative per technologist. The pancreas appears enlarged in a diffuse fashion. Consider evaluation with CT. Correlate for pancreatitis with lipase. The right kidney is echogenic and small having a length of about 9 cm. The left kidney appears relatively normal. There is no hydronephrosis. The spleen is normal in size, contour and echogenicity. There is mild ascites. IMPRESSION: Cholelithiasis. Wall thickening present. Sonographic Blood's is negative. Correlate for cholecystitis. Prominent appearance of the pancreas. Correlate for pancreatitis. Mild ascites Small echogenic right kidney. This could be on the basis of vascular disease or postinflammatory nature.
[2018-11-22] MEDS ORDERED: ACYCLOVIR IV SCH (18:00)
[2018-11-22] MEDS ORDERED: Docusate 100mg/10ml Liq NG SCH (18:00)
[2018-11-22] MEDS ORDERED: cefTRIAXone 2 GM in D5W 55 ML IVPB SCH (18:00)
[2018-11-22] MEDS ORDERED: D5W IV SCH (18:00)
[2018-11-22] MEDS ORDERED: Vancomycin 1gm/D5W 275ml IVPB ONE ×2 (18:00)
--- NOTE | 2018-11-22 18:34 | NUR ---
NURSE NOTES: ADLs done,turned and repositioned,HOB elevated at 35 degree to prevent aspiration.Will continue to monitor
--- NOTE | 2018-11-22 19:30 | NUR ---
NURSE NOTES: Patient demonstrating agonal breathing, non-rebreather mask at 100% 02 was placed and code blue was initiated.
--- NOTE | 2018-11-22 19:31 | NUR ---
NURSE NOTES: Patient was going marcus into the 30s. Pulse check was initiated, no pulse detected. Compressions was initiated.
--- NOTE | 2018-11-22 19:50 | NUR ---
NURSE NOTES: Patient now intubated by ER . Hooked onto the ventilator machine.
--- NOTE | 2018-11-22 20:00 | NUR ---
NURSE NOTES: Dr Delgado at bedside inserting Central line. Patient currently still being given compressions at the moment, cyn potts at bedside
[2018-11-22] MEDS ORDERED: Levophed 4mg/4mL Inj IV ONE (20:02)
[2018-11-22 20:12] LABS: BASOPHILS % (AUTO) 0.8 % (0.0-2.0); EOSINOPHILS % (AUTO) 2.2 % (0.0-3.0); HEMATOCRIT 30.4 % (42.0-52.0); HEMOGLOBIN 9.6 G/DL (14.2-18.0); LYMPHOCYTES % (AUTO) 45.4 % (20.0-45.0); MEAN CORPUSCULAR VOLUME 96 FL (80-99); MONOCYTES % (AUTO) 1.6 % (1.0-10.0); NEUTROPHILS % (AUTO) 50.1 % (45.0-75.0); PLATELET COUNT 259 K/UL (150-450); RED BLOOD COUNT 3.15 M/UL (4.70-6.10); RED CELL DISTRIBUTION WIDTH 13.8 % (11.6-14.8); WHITE BLOOD COUNT 6.6 K/UL (4.8-10.8)
[2018-11-22] MEDS ORDERED: Dyna-Hex 2% Top Sol 2oz TOPIC SCH (20:15)
--- NOTE | 2018-11-22 20:53 | Internal Med Progress Note ---
Subjective Date of Service: Nov 22, 2018 Physician Name Osei Hernandez Attending Physician Kelvin Bond MD Current Medications Medications (Trade) Dose Ordered Sig/Karthik Route PRN Reason Start Time Stop Time Status Last Admin Dose Admin Acetaminophen (Tylenol) 650 mg Q4H PRN NG fever 11/22/18 13:45 12/20/18 12:14 Acyclovir 300 mg/ Dextrose 275 ml @ 275 mls/hr Q24H IV 11/22/18 18:00 12/21/18 17:59 11/22/18 19:09 Aspirin (ASA) 81 mg DAILY ORAL 11/22/18 09:00 12/21/18 13:59 11/22/18 08:09 Ceftriaxone Sodium 2 gm/ Dextrose 55 ml @ 110 mls/hr EVERY 12 HOURS IVPB 11/22/18 18:00 11/29/18 17:59 11/22/18 19:07 Chlorhexidine Gluconate (Isa-Hex 2%) 1 applic DAILY@2000 TOPIC 11/23/18 20:00 12/23/18 19:59 Chlorhexidine Gluconate (Isa-Hex 2%) 1 applic ONCE TOPIC 11/22/18 20:15 11/22/18 21:00 Dextrose (Dextrose 50%) 25 ml Q30M PRN IV Hypoglycemia 11/21/18 22:15 12/20/18 12:14 Dextrose (Dextrose 50%) 50 ml Q30M PRN IV Hypoglycemia 11/21/18 22:30 12/20/18 12:29 Docusate Sodium (Colace) 100 mg THREE TIMES A DAY NG 11/22/18 18:00 12/22/18 17:59 11/22/18 18:01 Lactulose (Cephulac) 10 gm THREE TIMES A DAY ORAL 11/22/18 13:00 12/22/18 12:59 11/22/18 18:01 Lisinopril (Zestril) 2.5 mg BID ORAL 11/22/18 10:45 12/22/18 10:44 11/22/18 18:02 Lorazepam (Ativan 2mg/ml 1ml) 0.5 mg Q4H PRN IV For Anxiety 11/22/18 00:15 11/27/18 12:14 Midodrine (Pro-Amatine) 10 mg THREE TIMES A DAY ORAL 11/22/18 09:00 12/20/18 12:59 11/22/18 18:01 Nitroglycerin (Ntg) 1 patch Q24H TDERMAL 11/22/18 14:00 12/21/18 13:59 11/22/18 13:09 Norepinephrine Bitartrate 4 mg/ Dextrose 250 ml @ 0 mls/hr Q24H IV 11/22/18 20:15 12/22/18 20:14 Ondansetron HCl (Zofran) 4 mg Q6H PRN IVP Nausea & Vomiting 11/22/18 00:15 12/20/18 12:14 Pantoprazole (Protonix) 40 mg EVERY 12 HOURS ORAL 11/22/18 09:00 12/20/18 20:59 11/22/18 08:09 Polyethylene Glycol (Miralax) 17 gm HSPRN PRN ORAL Constipation 11/22/18 12:15 12/20/18 12:14 Promethazine HCl/ Codeine (Phenergan with Codeine) 5 ml Q8H PRN ORAL For Cough 11/22/18 00:00 12/21/18 15:59 Rifaximin (Xifaxan) 550 mg EVERY 12 HOURS ORAL 11/22/18 21:00 11/29/18 20:59 Sevelamer Carbonate (Renvela) 1,600 mg THREE TIMES A DAY ORAL 11/22/18 09:00 12/21/18 14:59 11/22/18 18:06 Sucralfate (Carafate) 1 gm BEFORE MEALS ORAL 11/22/18 06:30 12/20/18 16:29 11/22/18 18:16 Vancomycin HCl (Vanco rx to dose) 1 ea DAILY PRN MISC Per rx protocol 11/22/18 17:30 12/22/18 17:29 Zolpidem Tartrate (Ambien) 5 mg HSPRN PRN ORAL Insomnia 11/22/18 12:15 11/27/18 12:14 Allergies: Coded Allergies: No Known Allergies (Unverified , 11/20/18) ROS Limited/Unobtainable: Yes Subjective 63 YO M admitted with vertigo. Now nelson heart failure. Cover for Int Maximus-Dr Bond. Transfered to ICU for worsening mental status and hypoxia. Venturi mask Objective Last Vital Signs Date Time Temp Pulse Resp B/P (MAP) Pulse Ox O2 Delivery O2 Flow Rate FiO2 11/22/18 20:45 99 21 100 11/22/18 20:04 94 Venturi Mask 11/22/18 19:05 12.0 11/22/18 19:00 97/47 (64) 11/22/18 16:00 98.2 Laboratory Tests Test 11/22/18 05:12 11/22/18 09:17 11/22/18 19:55 11/22/18 20:30 White Blood Count 14.9 K/UL (4.8-10.8) H 6.6 K/UL (4.8-10.8) # Red Blood Count 3.45 M/UL (4.70-6.10) L 3.15 M/UL (4.70-6.10) L Hemoglobin 11.0 G/DL (14.2-18.0) L 9.6 G/DL (14.2-18.0) L Hematocrit 34.0 % (42.0-52.0) L 30.4 % (42.0-52.0) L Mean Corpuscular Volume 98 FL (80-99) 96 FL (80-99) Mean Corpuscular Hemoglobin 31.7 PG (27.0-31.0) H 30.6 PG (27.0-31.0) Mean Corpuscular Hemoglobin Concent 32.3 G/DL (32.0-36.0) 31.7 G/DL (32.0-36.0) L Red Cell Distribution Width 15.8 % (11.6-14.8) H 13.8 % (11.6-14.8) Platelet Count 236 K/UL (150-450) 259 K/UL (150-450) Mean Platelet Volume 9.3 FL (6.5-10.1) 3.8 FL (6.5-10.1) L Neutrophils (%) (Auto) % (45.0-75.0) 50.1 % (45.0-75.0) Lymphocytes (%) (Auto) % (20.0-45.0) 45.4 % (20.0-45.0) H Monocytes (%) (Auto) % (1.0-10.0) 1.6 % (1.0-10.0) Eosinophils (%) (Auto) % (0.0-3.0) 2.2 % (0.0-3.0) Basophils (%) (Auto) % (0.0-2.0) 0.8 % (0.0-2.0) Sodium Level 133 MMOL/L (136-145) L Pending Potassium Level 4.0 MMOL/L (3.5-5.1) Pending Chloride Level 92 MMOL/L (98-107) L Pending Carbon Dioxide Level 22 MMOL/L (21-32) Pending Anion Gap 19 mmol/L (5-15) H Blood Urea Nitrogen 81 mg/dL (7-18) H Pending Creatinine 6.4 MG/DL (0.55-1.30) H Pending Estimat Glomerular Filtration Rate 8.9 mL/min (>60) Pending Glucose Level 120 MG/DL (74-106) H Pending Uric Acid 7.0 MG/DL (2.6-7.2) Calcium Level 8.4 MG/DL (8.5-10.1) L Pending Phosphorus Level 8.4 MG/DL (2.5-4.9) H Pending Magnesium Level 2.0 MG/DL (1.8-2.4) Pending Total Bilirubin 5.2 MG/DL (0.2-1.0) H Pending Direct Bilirubin 4.3 MG/DL (0.0-0.3) H Gamma Glutamyl Transpeptidase 861 U/L (5-85) H Aspartate Amino Transf (AST/SGOT) 49 U/L (15-37) H Pending Alanine Aminotransferase (ALT/SGPT) 40 U/L (12-78) Pending Alkaline Phosphatase 587 U/L (46-116) H Pending Ammonia 27 umol/L (11-32) 531 umol/L (11-32) H Total Protein 7.2 G/DL (6.4-8.2) Pending Albumin 2.4 G/DL (3.4-5.0) L Pending Globulin 4.8 g/dL Pending Albumin/Globulin Ratio 0.5 (1.0-2.7) L Arterial Blood pH 7.439 (7.350-7.450) 7.108 (7.350-7.450) Arterial Blood Partial Pressure CO2 26.5 mmHg (35.0-45.0) L 40.5 mmHg (35.0-45.0) Arterial Blood Partial Pressure O2 62.7 mmHg (75.0-100.0) L 66.8 mmHg (75.0-100.0) L Arterial Blood HCO3 17.6 mmol/L (22.0-26.0) *L 12.5 mmol/L (22.0-26.0) *L Arterial Blood Oxygen Saturation 89.6 % (95-100) *L 80.0 % (95-100) *L Arterial Blood Base Excess -5.2 (-2-2) L -16.2 (-2-2) *L Julio Test N/a N/a Lactic Acid Level 0.80 mmol/L (0.4-2.0) Troponin I Pending Triglycerides Level Pending Cholesterol Level Pending LDL Cholesterol Pending HDL Cholesterol Pending Cholesterol/HDL Ratio Pending Hepatitis A IgM Antibody Pending Hepatitis B Surface Antigen Pending Hepatitis B Core IgM Antibody Pending Hepatitis C Antibody Pending Microbiology Date/Time Source Procedure Growth Status 11/20/18 10:32 Nasal Nares MRSA Culture - Final NO METHICILLIN RESISTANT STAPH AUREUS... Complete 11/20/18 10:32 Rectum VRE Culture - Final NO VANCOMYCIN RESISTANT ENTEROCOCCUS ... Complete Objective PHYSICAL EXAMINATION: GENERAL: Well-developed, well-nourished male, in no apparent distress. HEENT: Eyes, pupils equal and responsive to light and accommodation. Extraocular movements are intact. NECK: Supple without lymphadenopathy. CHEST: Venturi mask; Lungs with bilateral expiratory wheezes and rales. CARDIOVASCULAR: Regular rhythm and rate. S1 and S2 are normal without murmurs, rubs, or gallops. ABDOMEN: Soft, nontender, and nondistended. Positive bowel sounds. No evidence of hepatosplenomegaly. Currently, no rebound or guarding noted. EXTREMITIES: Negative for clubbing, cyanosis, or edema. RECTAL: Refused. GENITAL: Refused. NEUROLOGIC: Cranial nerves II through XII are grossly intact without focal deficits. Motor strength is 5/5 bilaterally intact. Deep tendon reflexes are 2+, plantar. Assessment/Plan Assessment/Plan ASSESSMENT: This is a 63-year-old male with: 1. Vertigo. 2. Right chest pain. 3. Herpes zoster. 4. End-stage renal disease. 5. Diabetes type 2. 6. Hypertension. 7. Acute congestive heart failure. 8. Cirrhosis of liver. 9. Respiratory failure TREATMENT: 1. Vertigo. This may be a multifactorial. The patient missed dialysis today. Vertigo may be secondary to missed dialysis versus acute cerebrovascular accident versus acute myocardial infarction. Serial troponin levels will be performed. MRI of the brain is pending. Carotid duplex Dopplers are pending. 2. Right chest pain. This is probably secondary to herpes zoster. 3. Herpes zoster. The patient has completed a course of Valtrex and prednisone. 4. End-stage renal disease. A Nephrology consultation has been obtained with Dr. Jeter. 5. Diabetes type 2. Regular insulin sliding scale has been instituted. 6. Hypertension. Continue midodrine as above. 7. Congestive heart failure-BNP=34,000 ?volume overload? 8. Cirrhosis of the liver. 9. ICU status; Osei Tamayo MD Nov 22, 2018 20:53
[2018-11-22] MEDS ORDERED: DOPamine 400mg/250ml 250 ML IV SCH (21:00)
--- NOTE | 2018-11-22 21:00 | NUR ---
NURSE NOTES: Family at bedside. Patients does not was to continue with compressions or another treatment. wants to discontinue and have patient DNR.
--- NOTE | 2018-11-22 21:12 | Consultation ---
History of Present Illness General Date patient seen: Nov 22, 2018 Referring physician: NALDO CHARLES Reason for Consultation: sepsis Present Illness HPI 63-year-old male with a history of end-stage renal disease on dialysis, diabetes mellitus on insulin, cirrhosis heart failure, chronic renal failure, and right femoral fracture status post ORIF presents today for 2-day history of intermittent episodes of dizziness initiated will consider sending him for an visual hallucinations. Admitted to ICU for care and management. Had acute cardiovascular event requiring ACLS. Surgery called to evaluate and assist with care as patient now on pressors and requiring venous access. patient seen , chart reviewed, patient examined. Allergies: Coded Allergies: No Known Allergies (Unverified , 11/20/18) Patient History Limited by: medical condition History Provided By: Family Member, Medical Record, PMD Healthcare decision maker Resuscitation status Full Code Advanced Directive on File Past Medical/Surgical History Past Medical/Surgical History: (1) Shingles (2) ESRD (end stage renal disease) (3) Diabetic nephropathy (4) Hypotension (5) Liver cirrhosis (6) Acute metabolic encephalopathy (7) Severe protein-calorie malnutrition (8) Diabetes mellitus (9) Cardiomyopathy Review of Systems ROS Narrative cannot obtain given medical condition Physical Exam General Appearance: severe distress Lines, tubes and drains: endotracheal tube HEENT: other Neck: normal inspection Respiratory/Chest: on vent Cardiovascular/Chest: arrhythmia Abdomen: soft, other Extremities: other Skin Exam: other Neurologic: unresponsiveness Last 24 Hour Vital Signs Date Time Temp Pulse Resp B/P (MAP) Pulse Ox O2 Delivery O2 Flow Rate FiO2 11/22/18 20:45 99 21 100 11/22/18 20:04 124 18 94 Venturi Mask 100 11/22/18 20:00 124 18 100 11/22/18 19:05 97 Venturi Mask 12.0 50 11/22/18 19:00 72 20 97/47 (64) 96 11/22/18 18:02 117/57 11/22/18 18:00 98 25 116/67 (83) 100 11/22/18 18:00 105 20 116/67 (83) 96 11/22/18 17:00 98 24 117/57 (77) 100 11/22/18 17:00 98 20 117/57 (77) 96 11/22/18 16:00 92 11/22/18 16:00 73 11/22/18 16:00 98.2 96 20 116/62 (80) 96 11/22/18 16:00 95 21 116/62 (80) 100 11/22/18 16:00 Nasal Cannula 4.0 11/22/18 15:00 95 26 119/58 (78) 100 11/22/18 14:00 99 26 133/55 (81) 93 11/22/18 13:09 129/56 11/22/18 13:00 97 20 129/58 (81) 96 11/22/18 12:00 98.5 96 20 124/60 (81) 96 11/22/18 12:00 Nasal Cannula 4.0 11/22/18 12:00 95 11/22/18 11:19 94 11/22/18 11:18 124/59 11/22/18 11:00 94 20 124/59 (80) 96 11/22/18 10:00 94 20 116/58 (77) 96 11/22/18 09:00 92 20 139/70 (93) 96 11/22/18 08:00 92 11/22/18 08:00 98.2 90 20 137/64 (88) 96 11/22/18 08:00 Nasal Cannula 4.0 11/22/18 07:00 92 18 132/67 (88) 98 11/22/18 06:00 88 18 130/65 (86) 98 11/22/18 05:07 90 18 117/57 (77) 96 11/22/18 04:27 90 11/22/18 04:00 Nasal Cannula 4.0 11/22/18 04:00 98.5 92 20 115/60 (78) 96 11/22/18 03:00 94 19 119/74 (89) 96 11/22/18 02:00 90 20 117/50 (72) 95 11/22/18 01:00 90 18 121/45 (70) 97 11/22/18 00:36 84 11/22/18 00:34 Nasal Cannula 4.0 11/22/18 00:00 98.8 84 18 101/49 (66) 97 11/21/18 23:19 97 Nasal Cannula 4.0 36 11/21/18 23:00 85 22 98/49 (65) 95 11/21/18 22:00 85 22 92/42 (59) 95 11/21/18 21:30 Nasal Cannula 4.0 11/21/18 21:18 95 11/21/18 21:15 99.5 95 22 102/42 (62) 95 Laboratory Tests Test 11/22/18 05:12 11/22/18 09:17 11/22/18 19:55 11/22/18 20:30 White Blood Count 14.9 K/UL (4.8-10.8) H 6.6 K/UL (4.8-10.8) # Red Blood Count 3.45 M/UL (4.70-6.10) L 3.15 M/UL (4.70-6.10) L Hemoglobin 11.0 G/DL (14.2-18.0) L 9.6 G/DL (14.2-18.0) L Hematocrit 34.0 % (42.0-52.0) L 30.4 % (42.0-52.0) L Mean Corpuscular Volume 98 FL (80-99) 96 FL (80-99) Mean Corpuscular Hemoglobin 31.7 PG (27.0-31.0) H 30.6 PG (27.0-31.0) Mean Corpuscular Hemoglobin Concent 32.3 G/DL (32.0-36.0) 31.7 G/DL (32.0-36.0) L Red Cell Distribution Width 15.8 % (11.6-14.8) H 13.8 % (11.6-14.8) Platelet Count 236 K/UL (150-450) 259 K/UL (150-450) Mean Platelet Volume 9.3 FL (6.5-10.1) 3.8 FL (6.5-10.1) L Neutrophils (%) (Auto) % (45.0-75.0) 50.1 % (45.0-75.0) Lymphocytes (%) (Auto) % (20.0-45.0) 45.4 % (20.0-45.0) H Monocytes (%) (Auto) % (1.0-10.0) 1.6 % (1.0-10.0) Eosinophils (%) (Auto) % (0.0-3.0) 2.2 % (0.0-3.0) Basophils (%) (Auto) % (0.0-2.0) 0.8 % (0.0-2.0) Sodium Level 133 MMOL/L (136-145) L Potassium Level 4.0 MMOL/L (3.5-5.1) Chloride Level 92 MMOL/L (98-107) L Carbon Dioxide Level 22 MMOL/L (21-32) Anion Gap 19 mmol/L (5-15) H Blood Urea Nitrogen 81 mg/dL (7-18) H Creatinine 6.4 MG/DL (0.55-1.30) H Estimat Glomerular Filtration Rate 8.9 mL/min (>60) Glucose Level 120 MG/DL (74-106) H Uric Acid 7.0 MG/DL (2.6-7.2) Calcium Level 8.4 MG/DL (8.5-10.1) L Phosphorus Level 8.4 MG/DL (2.5-4.9) H Magnesium Level 2.0 MG/DL (1.8-2.4) Total Bilirubin 5.2 MG/DL (0.2-1.0) H Direct Bilirubin 4.3 MG/DL (0.0-0.3) H Gamma Glutamyl Transpeptidase 861 U/L (5-85) H Aspartate Amino Transf (AST/SGOT) 49 U/L (15-37) H Alanine Aminotransferase (ALT/SGPT) 40 U/L (12-78) Alkaline Phosphatase 587 U/L (46-116) H Ammonia 27 umol/L (11-32) 531 umol/L (11-32) H Total Protein 7.2 G/DL (6.4-8.2) Albumin 2.4 G/DL (3.4-5.0) L Globulin 4.8 g/dL Albumin/Globulin Ratio 0.5 (1.0-2.7) L Arterial Blood pH 7.439 (7.350-7.450) 7.108 (7.350-7.450) Arterial Blood Partial Pressure CO2 26.5 mmHg (35.0-45.0) L 40.5 mmHg (35.0-45.0) Arterial Blood Partial Pressure O2 62.7 mmHg (75.0-100.0) L 66.8 mmHg (75.0-100.0) L Arterial Blood HCO3 17.6 mmol/L (22.0-26.0) *L 12.5 mmol/L (22.0-26.0) *L Arterial Blood Oxygen Saturation 89.6 % (95-100) *L 80.0 % (95-100) *L Arterial Blood Base Excess -5.2 (-2-2) L -16.2 (-2-2) *L Julio Test N/a N/a Lactic Acid Level 0.80 mmol/L (0.4-2.0) Hepatitis A IgM Antibody Pending Hepatitis B Surface Antigen Pending Hepatitis B Core IgM Antibody Pending Hepatitis C Antibody Pending Height (Feet): 5 Height (Inches): 6.00 Weight (Pounds): 126 Medications Current Medications Medications (Trade) Dose Ordered Sig/Karthik Route PRN Reason Start Time Stop Time Status Last Admin Dose Admin Acetaminophen (Tylenol) 650 mg Q4H PRN NG fever 11/22/18 13:45 12/20/18 12:14 Acyclovir 300 mg/ Dextrose 275 ml @ 275 mls/hr Q24H IV 11/22/18 18:00 12/21/18 17:59 11/22/18 19:09 Aspirin (ASA) 81 mg DAILY ORAL 11/22/18 09:00 12/21/18 13:59 11/22/18 08:09 Ceftriaxone Sodium 2 gm/ Dextrose 55 ml @ 110 mls/hr EVERY 12 HOURS IVPB 11/22/18 18:00 11/29/18 17:59 11/22/18 19:07 Chlorhexidine Gluconate (Isa-Hex 2%) 1 applic DAILY@2000 TOPIC 11/23/18 20:00 12/23/18 19:59 Dextrose (Dextrose 50%) 25 ml Q30M PRN IV Hypoglycemia 11/21/18 22:15 12/20/18 12:14 Dextrose (Dextrose 50%) 50 ml Q30M PRN IV Hypoglycemia 11/21/18 22:30 12/20/18 12:29 Docusate Sodium (Colace) 100 mg THREE TIMES A DAY NG 11/22/18 18:00 12/22/18 17:59 11/22/18 18:01 Dopamine HCl/ Dextrose 250 ml @ 0 mls/hr Q24H IV 11/22/18 21:00 12/22/18 20:59 Lactulose (Cephulac) 10 gm THREE TIMES A DAY ORAL 11/22/18 13:00 12/22/18 12:59 11/22/18 18:01 Lisinopril (Zestril) 2.5 mg BID ORAL 11/22/18 10:45 12/22/18 10:44 11/22/18 18:02 Lorazepam (Ativan 2mg/ml 1ml) 0.5 mg Q4H PRN IV For Anxiety 11/22/18 00:15 11/27/18 12:14 Midodrine (Pro-Amatine) 10 mg THREE TIMES A DAY ORAL 11/22/18 09:00 12/20/18 12:59 11/22/18 18:01 Nitroglycerin (Ntg) 1 patch Q24H TDERMAL 11/22/18 14:00 12/21/18 13:59 11/22/18 13:09 Norepinephrine Bitartrate 4 mg/ Dextrose 250 ml @ 0 mls/hr Q24H IV 11/22/18 20:15 12/22/18 20:14 Ondansetron HCl (Zofran) 4 mg Q6H PRN IVP Nausea & Vomiting 11/22/18 00:15 12/20/18 12:14 Pantoprazole (Protonix) 40 mg EVERY 12 HOURS ORAL 11/22/18 09:00 12/20/18 20:59 11/22/18 08:09 Polyethylene Glycol (Miralax) 17 gm HSPRN PRN ORAL Constipation 11/22/18 12:15 12/20/18 12:14 Promethazine HCl/ Codeine (Phenergan with Codeine) 5 ml Q8H PRN ORAL For Cough 11/22/18 00:00 12/21/18 15:59 Rifaximin (Xifaxan) 550 mg EVERY 12 HOURS ORAL 11/22/18 21:00 11/29/18 20:59 Sevelamer Carbonate (Renvela) 1,600 mg THREE TIMES A DAY ORAL 11/22/18 09:00 12/21/18 14:59 11/22/18 18:06 Sucralfate (Carafate) 1 gm BEFORE MEALS ORAL 11/22/18 06:30 12/20/18 16:29 11/22/18 18:16 Vancomycin HCl (Vanco rx to dose) 1 ea DAILY PRN MISC Per rx protocol 11/22/18 17:30 12/22/18 17:29 Zolpidem Tartrate (Ambien) 5 mg HSPRN PRN ORAL Insomnia 11/22/18 12:15 11/27/18 12:14 Assessment/Plan Problem List: (1) Liver cirrhosis Assessment & Plan: acute decompensation. ACLS needs venous access see note cont with pressors and ICU care. vent support cxr noted ICD Codes: K74.60 - Unspecified cirrhosis of liver SNOMED: 92193699 (2) Shingles ICD Codes: B02.9 - Zoster without complications SNOMED: 7418685 (3) ESRD (end stage renal disease) ICD Codes: N18.6 - End stage renal disease SNOMED: 55760393 (4) Diabetic nephropathy ICD Codes: E11.21 - Type 2 diabetes mellitus with diabetic nephropathy SNOMED: 954867432 (5) Hypotension ICD Codes: I95.9 - Hypotension, unspecified SNOMED: 99319986 (6) Acute metabolic encephalopathy ICD Codes: G93.41 - Metabolic encephalopathy SNOMED: 11940462, 425498671 (7) Severe protein-calorie malnutrition ICD Codes: E43 - Unspecified severe protein-calorie malnutrition SNOMED: 950285445, 820100507, 064766601 (8) Diabetes mellitus ICD Codes: E11.9 - Type 2 diabetes mellitus without complications SNOMED: 76466617 (9) Cardiomyopathy ICD Codes: I42.9 - Cardiomyopathy, unspecified SNOMED: 33369626 Enrrique Delgado Nov 22, 2018 21:12
--- NOTE | 2018-11-22 21:14 | Operative Note - PDOC ---
Operative Note Operative Note Date of Operation/Procedure: Nov 22, 2018 Pre-op Diagnosis: sepsis acute cardiovascular event ACLS Procedure: right femoral triple lumen central venous catheter insertion ; emergency Post-op Diagnosis: same as pre-op Surgeon: alta delgado md Anesthesia: other Specimen: none Complications: none Condition: unstable Estimated Blood Loss: minimal Implant(s) used?: No Indications for Procedure 63-year-old male with a history of end-stage renal disease on dialysis, diabetes mellitus on insulin, cirrhosis heart failure, chronic renal failure, and right femoral fracture status post ORIF presents today for 2-day history of intermittent episodes of dizziness initiated will consider sending him for an visual hallucinations. Admitted to ICU for care and management. Had acute cardiovascular event requiring ACLS. Surgery called to evaluate and assist with care as patient now on pressors and requiring venous access. Emergency line placement indicated for ACLS Description of Procedure right groin prepped and draped in standard surgical fashion. gown, gloves and protective equipment worn. right femoral vein cannulated on first stick with finder needle. guidewire placed and needle removed. skin incision made around guide wire. dilator used. following triple lumen catheter placed over guide wire and guidewire removed /discarded. all ports flushed and aspirated. line dressings placed and suture placed. line used during ACLS and okay to use. Alta Delgado Nov 22, 2018 21:14
--- NOTE | 2018-11-22 21:27 | NUR ---
NURSE NOTES: Called Dr. Bond regarding patients status and families decisions to stop CPR
--- NOTE | 2018-11-22 22:30 | NUR ---
NURSE NOTES: ER doctor came here to pronounce patients time of . Family at bedside
--- NOTE | 2018-11-23 02:15 | Emergency Room Report ---
History of Present Illness General Source: Family Member, Medical Record, PMD Present Illness HPI This patient was admitted for hepatic encephalopathy. He was transferred to ICU for hypotensive shock. He coded several times. I responded to a CODE BLUE. It was his third code of the night. Arrival CPR was in progress. Patient received epinephrine already. Surgeon was placing a central line. He did get a pulse back. Shortly afterward he went asystole again and CPR was initiated. Family was at bedside and did not want any further CPR. They made him DNR. I stopped the code. Patient then at 2150. Please see nursing notes for full list of medication given. Allergies: Coded Allergies: No Known Allergies (Unverified , 11/20/18) Nursing Documentation-[facility] Hx Cardiac Problems: No Hx Neurological Problems: No Physical Exam Vital Signs Date Time Temp Pulse Resp B/P (MAP) Pulse Ox O2 Delivery O2 Flow Rate FiO2 11/20/18 10:15 97.9 89 18 119/72 (88) 100 11/20/18 11:02 Room Air 11/21/18 21:00 2.0 11/21/18 23:19 36 Medical Decision Making Diagnostic Impression: Primary Impression: Cardiac arrest Last Vital Signs Date Time Temp Pulse Resp B/P (MAP) Pulse Ox O2 Delivery O2 Flow Rate FiO2 11/22/18 21:00 75 16 42/32 (35) 40 11/22/18 20:45 100 11/22/18 20:04 Venturi Mask 11/22/18 19:05 12.0 11/22/18 16:00 98.2 Status: other Disposition: Condition: Referrals: NOT CHOSEN XAVIER/,REFERRING (PCP) Ronal Min MD Nov 23, 2018 02:15
--- NOTE | 2018-11-23 04:41 | NUR ---
CODE BLUE: See Code sheet which remains on paper.code blue called at 1934.1943 and 2057,and then family decided not to go on with the code around 2106,patient pronounced at [address] erasmo krishnamurthy, an er md
--- NOTE | 2018-11-23 10:59 | Diagnostic Imaging Report ---
APPROVED REPORT CPT Code: 43201 Present Symptoms Shortness of breath BILATERAL: Imaging reveals a patent deep venous system bilaterally. There is no evidence of thrombus within the common femoral, superficial femoral, popliteal or tibial segments. The greater saphenous veins are within normal limits. Doppler indicates normal spontaneous flow within these segments.
--- NOTE | 2018-11-23 11:29 | Discharge Summary ---
Discharge Summary Discharge Summary _ SUMMARY DATE OF ADMISSION: 11/20/2018 DATE OF EXPIRATION: 11/22/2018 REASON FOR ADMISSION: 63 years old male with past medical history of end-stage renal disease on hemodialysis, liver cirrhosis, congestive heart failure, hypertension, diabetes mellitus type 2, presented with chief complaint of right-sided chest pain and dizziness. Patient was diagnosed with shingles approximately 1 week ago. Patient completed a course of Valtrex and prednisone. Patient reported that the rash disappeared. Patient initially presented to [facility] emergency department , complaining of dizziness , which began about 5 hours prior to presentation, and right-sided chest pain. CT head of the head was done at [facility] and revealed no acute intracranial pathology. Laboratory work-up revealed no leukocytosis, hemoglobin 11.2, hematocrit 33.1. Platelet count 225. Chemistry showed sodium 133. BUN 80, creatinine 5.6, consistent with known history of end-stage renal disease. Blood glucose 290. Troponin elevated -0.27. EKG revealed no acute ischemic changes. Ammonia level 88. Pro BNP 4989. Emergency room physician at [facility] concluded that elevated troponin was likely due to end-stage renal disease, and cleared patient for transfer to [facility] due to insurance issues. Patient was subsequently transferred to [facility] for further evaluation and management. CONSULTANTS: pulmonary Dr. Rosales GI specialist Dr. Henry loss prevention and safety manager Dr. Jeter surgery Dr. Delgado [facility] COURSE: Patient admitted to monitored floor. [employer] Engineer followed-up with hemodialysis. Serial troponin were monitored. Troponin - 0.234 with small trend down down from an initial at [facility]-0.270. Venous duplex bilateral lower extremity revealed no evidence of acute DVT. Chest x-ray demonstrated pulmonary vascular congestion/CHF. Echocardiogram demonstrated left ventricular ejection fraction of 15 to 20%. Global left ventricular hypokinesis with anteroseptal wall basal to distant and apical akinesis, ischemic cardiomyopathy could not be excluded. Mitral inflow velocity indicated possible pseudonormalization pattern, implying moderately elevated left atrial pressure. Grade 2 . Mild to moderate mitral regurgitation. Mild to moderate tricuspid regurgitation. Right ventricular systolic pressure of 51 consistent with moderate pulmonary hypertension. Patient noted to be hypotensive. Patient started on midodrine as per loss prevention and safety manager. Hemodialysis was provided with close monitoring of volumes and cardiorenal parameters. GI specialist followed. Ammonia level elevated . Patient started on rifaximin and lactulose. On 11/21 patient noted to have leukocytosis . Chest x-ray showed pulmonary vascular congestion/CHF. Patient started on empiric antibiotic. Antitussive provided as needed. Abdominal x-ray demonstrated NG tube in the position , but suggested advancing it by 5 cm for more optimal positioning. Pain management was addressed. Hemoglobin and hematocrit were closely monitored with goal to keep hemoglobin above 7. Patient was on oral iron. GI specialist seen the patient for consult. Records from [facility] were obtained. HIDA scan ,done on August, was negative for biliary ductal dilatation or common bile duct dilatation. Abdominal ultrasound, done on August, revealed early cirrhosis with moderate amount of ascites. CT of the abdomen and pelvis , done in August 2018, revealed cholelithiasis with gallbladder wall edema and thickening, most likely secondary to hepatocellular disease. Patient had EGD on 10/22/2018. Patient started on lactulose and Xifaxan. Anemia work-up was ordered. Stool for occult blood was ordered . GI specialist recommended to consider endoscopy when hemodynamically stable. Hemoglobin and hematocrit were closely monitored with with goal to keep hemoglobin above 7. LFT and ammonia were trended. Hepatitis panel was ordered . Abdominal ultrasound revealed cholelithiasis with gallbladder wall thickening present. Sonographic Blood's was negative. Prominent appearance of the pancreas. Mild ascites. Small echogenic right kidney Patient already was on GI prophylaxis with PPI. Patient condition worsened. Patient still was with leukocytosis, but afebrile. Laboratory demonstrated elevated total and direct bilirubin : total bilirubin 5.4, direct bilirubin 4.3 . Ammonia level rise sharply to 587. Blood pressure remained low despite midodrine. Patient was transferred to ICU for hypotensive shock . Central line was placed for pressors by general surgeon. Patient was coded due to asystole. Patient required emergency oral intubation. CXR confirmed endotracheal tube placement. It also revealed slightly worsening perihilar infiltrates versus patchy central pulmonary edema. Patient was on broad spectrum antibiotics. Patient started on pressors: Levophed and dopamine to keep mean arterial blood pressure above 65. Blood pressure remained critically low despite two pressors. Patient coded two more times due to asystole. During the last code family requested no further CPR. CODE STATUS was changed to DNR/DNI. Patient was pronounced at 21:50 on 04/02. Cause of : cardiopulmonary arrest FINAL DIAGNOSES: Status post cardiopulmonary arrest x 3 Acute respiratory failure requiring intubation Acute metabolic encephalopathy Acute hepatic encephalopathy Possible sepsis Hypotensive shock Acute systolic congestive heart failure Severe cardiomyopathy Liver cirrhosis Vertigo Right chest pain, probably due to recent herpes zoster End-stage renal disease, on hemodialysis Diabetes mellitus type 2 Diabetic nephropathy History of hypertension Herpes zoster Severe protein calorie malnutrition I have been assigned to dictate discharge summary for this account. I was not involved in the patient's management. Siena Ellison NP Nov 23, 2018 11:29
--- NOTE | 2018-11-23 12:19 | Diagnostic Imaging Report ---
Indication: Status post intubation Comparison: 11/22/2018 A single view chest radiograph was obtained. Findings: Endotracheal tube is in good position about 3 to 4 cm above the isamar. Worsening patchy infiltrates versus central pulmonary edema noted. Heart is enlarged. IMPRESSION: Endotracheal tube in good position. Slightly worsening perihilar infiltrates versus patchy central pulmonary edema
[2018-11-23] MEDS ORDERED: Dyna-Hex 2% Top Sol 2oz TOPIC SCH (20:00)
--- NOTE | 2018-11-24 21:06 | Cardiology Report ---
APPROVED REPORT EXAM: Two-dimensional and M-mode echocardiogram with Doppler and color Doppler. INDICATION Congestive Heart Failure M-Mode DIMENSIONS IVSd0.6 (0.7-1.1cm)Left Atrium (MM)3.8 (1.6-4.0cm) LVDd4.8 (3.5-5.6cm)Aortic Root2.2 (2.0-3.7cm) PWd0.5 (0.7-1.1cm)Aortic Cusp Exc.1.2 (1.5-2.0cm) IVSs0.9 cm LVDs4.3 (2.5-4.0cm) PWs0.6 cm Mild left ventricular enlargement . Global left ventricular hypokinesia except the anteroseptal wall which is dyskinetic, ischemic cardiomyopathy can not be excluded. Left ventricular ejection fraction estimated to be 15-20%. No evidence of left ventricular hypertrophy . No evidence of pericardial effusion. Mild left atrial enlargement . Right cardiac chamber sizes at upper limits of normal. Heavy aortic valve calcification with reduced cusp excursion . Mildly thickened mitral valve leaflets with normal excursion. Mild mitral annulus and aortic root calcification. Pulmonic valve not well visualized. IVC dilated at 2.7 cm without physiologic collapse suggestive of increased RA pressure. A color flow and spectral Doppler study was performed and revealed: Trace aortic insufficiency . Peak aortic valve gradient of 9 mm Hg and a mean of 5 mmHg. Aortic valve area 2.8 cm2 calculated by continuity equation. Mitral inflow velocities indicates possible pseudo normalization pattern implying moderately elevated left atrial pressure (Grade II ). Mild to moderate mitral regurgitation. Mild to moderate tricuspid regurgitation. Tricuspid systolic velocities suggests peak right ventricular systolic pressure of 51 mmHg,consistent with moderate pulmonary HTN. Trace pulmonic regurgitation .
== END 2018-11-22 21:15 | disposition expired | DRG 871 ==
LOC: 2E 09:26 → ICU 11-21 21:32
PROC: 5A1D70Z Performance of Urinary Filtration, Intermittent, Less than 6 Hours Per Day (ICD-10-PCS; principal; 2018-11-21)
PROC: 5A1935Z Respiratory Ventilation, Less than 24 Consecutive Hours (ICD-10-PCS; 2018-11-22)
PROC: 06HY33Z Insertion of Infusion Device into Lower Vein, Percutaneous Approach (ICD-10-PCS; 2018-11-22)
PROC: 0BH18EZ Insertion of Endotracheal Airway into Trachea, Via Natural or Artificial Opening Endoscopic (ICD-10-PCS; 2018-11-22)
DX: A41.9 Sepsis, unspecified organism (principal); N18.6 End stage renal disease; I50.21 Acute systolic (congestive) heart failure; G93.41 Metabolic encephalopathy; E43 Unspecified severe protein-calorie malnutrition; K72.00 Acute and subacute hepatic failure without coma; J96.00 Acute respiratory failure, unspecified whether with hypoxia or hypercapnia; I13.2 Hypertensive heart and chronic kidney disease with heart failure and with stage 5 chronic kidney disease, or end stage renal disease; R18.8 Other ascites; I42.9 Cardiomyopathy, unspecified; K80.10 Calculus of gallbladder with chronic cholecystitis without obstruction; B02.9 Zoster without complications; Z99.2 Dependence on renal dialysis; R42 Dizziness and giddiness; K74.60 Unspecified cirrhosis of liver; K72.90 Hepatic failure, unspecified without coma; Z68.20 Body mass index [BMI] 20.0-20.9, adult; R57.8 Other shock; I46.9 Cardiac arrest, cause unspecified; Z87.891 Personal history of nicotine dependence; Z66 Do not resuscitate; E11.21 Type 2 diabetes mellitus with diabetic nephropathy; I34.0 Nonrheumatic mitral (valve) insufficiency; I36.1 Nonrheumatic tricuspid (valve) insufficiency; I27.20 Pulmonary hypertension, unspecified; Z79.4 Long term (current) use of insulin
CPT/HCPCS: 36415; 36600; 71045; 74018; 76700; 80048; 80053; 80061; 82140; 82248; 82550; 82607; 82728; 82746; 82803; 82962; 82977; 83036; 83540; 83550; 83605; 83735; 83880; 84100; 84443; 84484; 84550; 85025; 86140; 86705; 86706; 86709; 86803; 87081; 87340; 92950; 93306; 93970; 94002; 94664